=== PATIENT | male | born 1930 | race Caucasian/White ===

== ENCOUNTER → 2017-07-28 | Outpatient (CLI) | payer MEDICARE, OTHER ==
--- NOTE | 2017-07-28 13:26 | REP ---
CHEST, X-RAY: TWO VIEWS. History: Cough. Times 2 weeks. Comparison study: October 26, 2015. Findings: There are multiple old rib fractures bilaterally again noted. The lungs are symmetrically aerated and otherwise clear. The pleural angles are sharp. Heart size is normal. Pulmonary vasculature is not increased. The aorta is calcific. Impression: No filtrate seen. Multiple old bilateral rib fractures.
--- NOTE | 2017-07-28 14:00 | REP ---
Cervical spine series: Eight views. History: Neck pain. Comparison study: October 26, 2015. Findings: Lateral views done in flexion, extension and neutral position show straightening and reversal of the normal cervical lordosis. There is limitation of flexion, extension range of motion but no subluxation or instability is appreciated. No change in comparison with the November 11, 2015 prior study. Swimmers lateral view shows no additional abnormality. There is degenerative disc narrowing and spur formation at C3-4 through C6-7 and even C7-T1 as before. There is osteoarthritic facet hypertrophy prominently affecting the mid cervical spine facets bilaterally. The patient is edentulous. Oblique radiographs demonstrate uncovertebral spurring producing neural foraminal encroachment on the right C3-4, C4-5 and to some degree of C5-6. On the left there is uncovertebral spurring at C4-5 and C5-6. Impression: Advanced degenerative spondylosis changes unchanged from the comparison study.
== END ==
LOC: M CLY 10:43
PROVIDERS: ATTEND Family Medicine
DX: R05 Cough (principal); M47.812 Spondylosis without myelopathy or radiculopathy, cervical region; M50.30 Other cervical disc degeneration, unspecified cervical region; M12.88 Other specific arthropathies, not elsewhere classified, other specified site; Z87.81 Personal history of (healed) traumatic fracture
CPT/HCPCS: 71020; 72050; G0463

== ENCOUNTER 2019-02-18 11:33 | Inpatient (IN) | payer MEDICARE, OTHER ==
[~2019-02-18] VITALS: Ht 170.2 cm; Wt 75.3 kg
[2019-02-18] MEDS ORDERED: LORA-674 PO (11:50)
[2019-02-18] MEDS ORDERED: ZANTTAB PO (11:50)
[2019-02-18] MEDS ORDERED: BRIM1OPD OU (11:50)
[2019-02-18] MEDS ORDERED: CITA40TA4 PO (11:50)
[2019-02-18] MEDS ORDERED: BRIM2OPD OU (11:50)
[2019-02-18] MEDS ORDERED: TAMS1CAP17 PO (11:50)
[2019-02-18] MEDS ORDERED: ACET25TA12 PO (11:50)
[2019-02-18] MEDS ORDERED: TOLT4CAP3 PO (11:50)
[2019-02-18] MEDS ORDERED: TRAV04OPD OU (11:50)
[2019-02-18] MEDS ORDERED: ATOR1TAB21 PO (11:50)
[2019-02-18] MEDS ORDERED: METO50TA7 PO (11:50)
[2019-02-18] MEDS ORDERED: BENZ150C2 PO (11:50)
[2019-02-18 12:46] LABS: BASO # 0.1 10^3/uL (0.0-0.2); BASO % 0.7 % (0.0-1.0); EOS # 0.5 10^3/uL (0.0-0.50); EOS % 6.1 % (0.0-3.0); HEMATOCRIT 38.7 % (42.0-52.0); HEMOGLOBIN 13.1 g/dl (13.5-17.5); LYMPH # 1.2 10^3/uL (1.5-4.5); LYMPH % 13.4 % (24.0-44.0); MEAN CORPUSCULAR HEMOGLOBIN 31.9 pg (27.0-33.0); MEAN CORPUSCULAR HGB CONC 33.9 g/dl (32.0-36.5); MEAN CORPUSCULAR VOLUME 94.2 fl (80.0-96.0); MONO # 0.8 10^3/uL (0.0-0.8); MONO % 9.4 % (0.0-5.0); NEUTROPHILS # 6.1 10^3/uL (1.8-7.7); NEUTROPHILS % 69.9 % (36.0-66.0); PLATELET COUNT, AUTOMATED 220 10^3/uL (150-450); RED BLOOD COUNT 4.11 10^6/uL (4.30-6.10); WHITE BLOOD COUNT 8.7 10^3/uL (4.0-10.0)
[2019-02-18 13:28] LABS: ALBUMIN 3.2 GM/DL (3.2-5.2); ALT/SGPT 27 U/L (12-78); BILIRUBIN,DIRECT 0.2 MG/DL (0.0-0.2); BILIRUBIN,TOTAL 0.6 MG/DL (0.2-1.0); BLOOD UREA NITROGEN 13 MG/DL (7-18); CALCIUM LEVEL 8.8 MG/DL (8.8-10.2); CARBON DIOXIDE LEVEL 26 MEQ/L (21-32); CHLORIDE LEVEL 100 MEQ/L (98-107); CPK CREATINE PHOSPHOKINASE 51 U/L (39-308); CREATININE FOR GFR 1.02 MG/DL (0.70-1.30); GLOMERULAR FILTRATION RATE > 60.0 (>35); GLUCOSE, FASTING 112 MG/DL (70-100); MB/CK RELATIVE INDEX 3.33 (< OR =4); POTASSIUM SERUM 4.3 MEQ/L (3.5-5.1); SODIUM LEVEL 134 MEQ/L (136-145); TOTAL PROTEIN 6.8 GM/DL (6.4-8.2); TROPONIN I < 0.02 NG/ML (< 0.10)
--- NOTE | 2019-02-18 15:27 | REP ---
CT BRAIN WITHOUT CONTRAST: HISTORY: Altered mental status. No comparison study. CT FINDINGS: Digital preliminary [employer] radiograph is unremarkable. The patient is edentulous. Bone window settings show no bony destructive lesion or skull fracture. Vascular calcification is noted in the distal carotid and distal vertebral arteries bilaterally. No intraorbital abnormality is seen. The visualized paranasal sinuses are clear. On soft tissue window settings, there is generalized moderate cerebral and some cerebellar atrophy with concordant ventricular enlargement. There are moderate small vessel changes in the periventricular white matter of the frontal lobes. There is no evidence of acute infarction. No hemorrhage is seen. There is an old lacunar infarct in the left basal ganglia. No mass, extra-axial fluid collection or midline shift is seen. IMPRESSION: Vascular calcification, diffuse moderate atrophy, small vessel changes. Old lacunar infarct in the left basal ganglia. No acute intracranial abnormality. Electronically Signed by Israel Elliott MD 02/18/2019 03:57 P
--- NOTE | 2019-02-18 15:35 | REP ---
Semi-erect AP chest x-ray: Single view. History: Altered mental status. Comparison chest x-ray: July 28, 2017. Findings: EKG monitoring electrodes overlie the lung bases. Heart size is borderline and magnified by the AP technique. There are multiple old somewhat displaced healed rib fractures on the left and right. No acute bony abnormality is seen. Pulmonary vasculature is not increased. The aorta is calcific and a little tortuous. Impression: Borderline heart size. Old healed rib fractures bilaterally. Otherwise no acute disease. Electronically Signed by Israel Elliott MD 02/18/2019 03:58 P
[2019-02-18] MEDS ORDERED: RANI75TA15 PO (16:36)
--- NOTE | 2019-02-18 17:52 | HPEPDOC ---
General Date of Admission February 18, 2019 at 17:04 Date of Service: February 18, 2019 Chief Complaint The patient is a 89-year-old male admitted with a reason for visit of Confusion. History of Present Illness 89-year-old male with past medical history of dyslipidemia, anxiety/depression, hypertension, BPH presented to the ER with a chief complaint of increased confusion over the last several weeks. 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 She states that he has been picking things from the air while asleep. This has been ongoing over the last 3- 4 weeks as per the janitorial services supervisor, however over the last 3 days the patient has been becoming increasingly confused. She denies noticing any fevers, chills, chest pain, palpitations, abdominal pain, or any nausea/vomiting/diarrhea. In the ER, a CT scan of the head revealed no acute findings. The patient's urinalysis was suggestive of possible underlying urinary tract of action. The patient will be admitted under the [facility] for further evaluation and management. Home Medications Scheduled Acetaminophen/Diphenhydramine (Acetaminophen Pm Caplet) 1 Each Tablet, 1 TAB PO QHS, (Reported) Atorvastatin Calcium (Atorvastatin Calcium) 20 Mg Tablet, 20 MG PO DAILY, (Reported) Brimonidine Tartrate (Alphagan P) 0.1% 5ML Drops, 1 DROP OU DAILY, (Reported) Brimonidine Tartrate (Brimonidine Tartrate) 0.15% 5ML Drops, 1 DROP OU DAILY, (Reported) Citalopram Hydrobromide (Citalopram HBr) 40 Mg Tablet, 40 MG PO DAILY, (Reported) Loratadine (Loratadine) 10 Mg Tablet, 10 MG PO DAILY, (Reported) Metoprolol Tartrate (Metoprolol Tartrate) 50 Mg Tablet, 50 MG PO BID, (Reported) Ranitidine HCl (Ranitidine HCl) 75 Mg Tablet, 1 TAB PO BID, (Reported) Tamsulosin Hcl (Tamsulosin HCl) 0.4 Mg Capsule, 0.4 MG PO QHS, (Reported) Tolterodine Tartrate (Tolterodine Tartrate ER) 4 Mg Cap.er.24h, 4 MG PO DAILY, (Reported) Travoprost (Travatan Z) 0.004% 2.5ML Drops, 1 DROP OU QHS, (Reported) Allergies Coded Allergies: No Known Allergies (Unverified , 02/18/19) Social History * Smoker: Denies Alcohol: Denies Drugs: denies Review of Systems Other systems 10 point review of systems Limited secondary to the patient's clinical condition. Please refer to HPI for the extent of review of systems. Physical Examination General Exam: Positive: Alert, Cooperative, No Acute Distress, Other (Oriented only to person, not time, situation, or place) ENT Exam: Positive: Atraumatic, Mucous membr. moist/pink Chest Exam: Positive: Clear to auscultation, Normal air movement Heart Exam: Positive: Rate Normal, Normal S1, Normal S2 Abdomen Exam: Positive: Soft; Negative: Tenderness Extremity Exam: Negative: Tenderness, Swelling Vital Signs Vital Signs Date Time Temp Pulse Resp B/P (MAP) Pulse Ox O2 Delivery O2 Flow Rate FiO2 02/18/19 16:30 63 18 175/84 (114) 96 Room Air 02/18/19 11:34 99.1 Laboratory Data Labs 24H Laboratory Tests 2 02/18/19 12:23: Immature Granulocyte % (Auto) 0.5, White Blood Count 8.7, Red Blood Count 4.11L, Hemoglobin 13.1L, Hematocrit 38.7L, Mean Corpuscular Volume 94.2, Mean Corpuscular Hemoglobin 31.9, Mean Corpuscular Hemoglobin Concent 33.9, Red Cell Distribution Width 13.1, Platelet Count 220, Neutrophils (%) (Auto) 69.9H, Lymphocytes (%) (Auto) 13.4L, Monocytes (%) (Auto) 9.4H, Eosinophils (%) (Auto) 6.1H, Basophils (%) (Auto) 0.7, Neutrophils # (Auto) 6.1, Lymphocytes # (Auto) 1.2L, Monocytes # (Auto) 0.8, Eosinophils # (Auto) 0.5, Basophils # (Auto) 0.1, Nucleated Red Blood Cells % (auto) 0.0, Lactic Acid Level 1.2 02/18/19 12:24: Anion Gap 8, Glomerular Filtration Rate > 60.0, Calcium Level 8.8, Aspartate Amino Transf (AST/SGOT) 26, Alanine Aminotransferase (ALT/SGPT) 27, Alkaline Phosphatase 66, Total Bilirubin 0.6, Direct Bilirubin 0.2, Total Creatine Kinase 51, Creatine Kinase MB 2.0, Creatine Kinase MB Relative Index 3.33, Troponin I < 0.02, Total Protein 6.8, Albumin 3.2, Albumin/Globulin Ratio 0.89L, Thyroid Stimulating Hormone (TSH) 1.040 02/18/19 14:19: Urine Color YELLOW, Urine Appearance CLEAR, Urine pH 5.0, Urine Specific Speed 1.012, Urine Protein NEGATIVE, Urine Glucose (UA) NEGATIVE, Urine Ketones NEGATIVE, Urine Blood NEGATIVE, Urine Nitrite NEGATIVE, Urine Bilirubin NEGATIVE, Urine Urobilinogen 2.0H, Urine Leukocyte Esterase 2+H, Urine WBC (Auto) 13H, Urine RBC (Auto) 2, Urine Hyaline Casts (Auto) 0, Urine Bacteria (Auto) NEGATIVE, Urine Squamous Epithelial Cells 0, Urine Sperm (Auto) CBC/BMP Laboratory Tests 02/18/19 12:23 Red Blood Count 4.11 L, Mean Corpuscular Volume 94.2, Mean Corpuscular Hemoglobin 31.9, Mean Corpuscular Hemoglobin Concent 33.9, Red Cell Distribution Width 13.1, Neutrophils (%) (Auto) 69.9 H, Lymphocytes (%) (Auto) 13.4 L, Monocytes (%) (Auto) 9.4 H, Eosinophils (%) (Auto) 6.1 H, Basophils (%) (Auto) 0.7, Neutrophils # (Auto) 6.1, Lymphocytes # (Auto) 1.2 L, Monocytes # (Auto) 0.8, Eosinophils # (Auto) 0.5, Basophils # (Auto) 0.1 02/18/19 12:24 Microbiology Microbiology 02/18/19 Blood Culture, Received Pending 02/18/19 Blood Culture, Received Pending 02/18/19 Urine Culture, Received Pending Plan / VTE VTE Prophylaxis Ordered?: Yes Plan Plan Confusion, possibly 2/2 UTI, underlying Dementia CT Head with no acute findings CXR with no acute finding UA suggestive of possible underlying UTI Cultures ordered We will continue the patient on Rocephin Dyslipidemia Cont Statin HTN Cont Metoprolol Anxiety/Depression Cont Citalopram DVT Prophylaxis Heparin SC Patient will be admitted under the service of Dr. Burgess of the [facility]. SUE LOVE MD February 18, 2019 17:52
[2019-02-18] MEDS ORDERED: cefTRIAXone SOD 1 GM in D5W MINI-BAG PLUS 50 ML IV SCH (18:00)
[2019-02-18 18:12] VITALS: BP 164/84
[2019-02-18] MEDS: HEPARIN SOD (PORCINE) 5000 UNITS/ML VIAL SC SCH (21:12)
[2019-02-18] MEDS: FAMOTIDINE 20 MG TAB PO SCH (21:12)
[2019-02-18] MEDS: LATANOPROST 0.005% OPHTH SOLN 2.5 ML OU SCH (21:12)
[2019-02-18] MEDS: TAMSULOSIN 0.4 MG CAP PO SCH (21:12)
[2019-02-18] MEDS: METOPROLOL TART 50 MG TAB PO SCH (21:13)
[2019-02-18 22:00] VITALS: BP 147/67
[2019-02-19 06:00] VITALS: BP 136/96
[2019-02-19 06:04] LABS: HEMATOCRIT 36.9 % (42.0-52.0); HEMOGLOBIN 12.7 g/dl (13.5-17.5); MEAN CORPUSCULAR HEMOGLOBIN 31.8 pg (27.0-33.0); MEAN CORPUSCULAR HGB CONC 34.4 g/dl (32.0-36.5); MEAN CORPUSCULAR VOLUME 92.3 fl (80.0-96.0); PLATELET COUNT, AUTOMATED 195 10^3/uL (150-450); WHITE BLOOD COUNT 7.8 10^3/uL (4.0-10.0)
--- NOTE | 2019-02-19 06:04 | ECGEPIP ---
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
[2019-02-19 06:27] LABS: ALBUMIN 3.1 GM/DL (3.2-5.2); ALT/SGPT 25 U/L (12-78); BILIRUBIN,TOTAL 0.6 MG/DL (0.2-1.0); BLOOD UREA NITROGEN 10 MG/DL (7-18); CALCIUM LEVEL 9.1 MG/DL (8.8-10.2); CARBON DIOXIDE LEVEL 25 MEQ/L (21-32); CHLORIDE LEVEL 101 MEQ/L (98-107); CREATININE FOR GFR 0.91 MG/DL (0.70-1.30); GLOMERULAR FILTRATION RATE > 60.0 (>35); GLUCOSE, FASTING 100 MG/DL (70-100); MAGNESIUM LEVEL 1.7 MG/DL (1.8-2.4); POTASSIUM SERUM 3.9 MEQ/L (3.5-5.1); SODIUM LEVEL 133 MEQ/L (136-145); TOTAL PROTEIN 6.5 GM/DL (6.4-8.2)
--- NOTE | 2019-02-19 08:44 | IPNPDOC ---
Subjective Date Seen The patient was seen on 02/19/19. Subjective Chief Complaint/HPI Per sitter, patient was a little agitated last night. Did not fall asleep until very late Constitutional: Denies: Chills, Fever Cardiovascular: Denies: Chest Pain Gastrointestinal: Denies: Nausea, Vomiting, Abdominal Pain Objective Physical Examination General Exam: Positive: Alert, Cooperative, No Acute Distress, Other (Oriented only to person, not time, situation, or place) ENT Exam: Positive: Atraumatic, Mucous membr. moist/pink Chest Exam: Positive: Clear to auscultation, Normal air movement; Negative: Rales, Rhonchi, Wheezing Heart Exam: Positive: Rate Normal, Regular Rhythm, Normal S1, Normal S2 Abdomen Exam: Positive: Soft; Negative: Tenderness Extremity Exam: Negative: Tenderness, Swelling Psych Exam: Positive: Mental status NL; Negative: Oriented x 3 Assessment /Plan Problems (1) Delirium Status: Acute Problem Text: I have left a message with his caregiver to try to get a little b merari understanding of his baseline mental status to determine if this is an acute delirium or chronic dementia with psychosis Review of ecw notes does not mention dementia in the history. It does not appear there have been any new meds added that may contribute to acute delirium. His U/C is negative - I will d/c abx. B/C are pending but no real signs or symptoms of infection (2) Confusion Plan/VTE VTE Prophylaxis Ordered?: Yes (SQ heparin) Plan Pt and Family Services: Other PFS (need to get PFS involved to help [facility]mine [facility] VS, I&O, 24H, [facility] Vital Signs/I&O Vital Signs Date Time Temp Pulse Resp B/P (MAP) Pulse Ox O2 Delivery O2 Flow Rate FiO2 02/19/19 06:00 98.0 72 20 136/96 (109) 96 02/18/19 17:03 Room Air I&O- Last 24 Hours up to 6 AM 02/19/19 06:00 Intake Total 360 ml Output Total 650 ml Balance -290 ml Laboratory Data 24H LABS Laboratory Tests 2 02/18/19 12:23: Immature Granulocyte % (Auto) 0.5, White Blood Count 8.7, Red Blood Count 4.11L, Hemoglobin 13.1L, Hematocrit 38.7L, Mean Corpuscular Volume 94.2, Mean Corpuscular Hemoglobin 31.9, Mean Corpuscular Hemoglobin Concent 33.9, Red Cell Distribution Width 13.1, Platelet Count 220, Neutrophils (%) (Auto) 69.9H, Lymphocytes (%) (Auto) 13.4L, Monocytes (%) (Auto) 9.4H, Eosinophils (%) (Auto) 6.1H, Basophils (%) (Auto) 0.7, Neutrophils # (Auto) 6.1, Lymphocytes # (Auto) 1.2L, Monocytes # (Auto) 0.8, Eosinophils # (Auto) 0.5, Basophils # (Auto) 0.1, Nucleated Red Blood Cells % (auto) 0.0, Lactic Acid Level 1.2 02/18/19 12:24: Anion Gap 8, Glomerular Filtration Rate > 60.0, Calcium Level 8.8, Aspartate Amino Transf (AST/SGOT) 26, Alanine Aminotransferase (ALT/SGPT) 27, Alkaline Phosphatase 66, Total Bilirubin 0.6, Direct Bilirubin 0.2, Total Creatine Kinase 51, Creatine Kinase MB 2.0, Creatine Kinase MB Relative Index 3.33, Troponin I < 0.02, Total Protein 6.8, Albumin 3.2, Albumin/Globulin Ratio 0.89L, Thyroid Stimulating Hormone (TSH) 1.040 02/18/19 14:19: Urine Color YELLOW, Urine Appearance CLEAR, Urine pH 5.0, Urine Specific [place] 1.012, Urine Protein NEGATIVE, Urine Glucose (UA) NEGATIVE, Urine Ketones NEGATIVE, Urine Blood NEGATIVE, Urine Nitrite NEGATIVE, Urine Bilirubin NEGATIVE, Urine Urobilinogen 2.0H, Urine Leukocyte Esterase 2+H, Urine WBC (Auto) 13H, Urine RBC (Auto) 2, Urine Hyaline Casts (Auto) 0, Urine Bacteria (Auto) NEGATIVE, Urine Squamous Epithelial Cells 0, Urine Sperm (Auto) 02/19/19 05:42: Nucleated Red Blood Cells % (auto) 0.0, Anion Gap 7L, Glomerular Filtration Rate > 60.0, Calcium Level 9.1, Aspartate Amino Transf (AST/SGOT) 23, Alanine Aminotransferase (ALT/SGPT) 25, Alkaline Phosphatase 64, Total Bilirubin 0.6, Total Protein 6.5, Albumin 3.1L, Albumin/Globulin Ratio 0.91L, Blood Urea Nitrogen 10, Creatinine 0.91, Sodium Level 133L, Potassium Level 3.9, Chloride Level 101, Carbon Dioxide Level 25, Magnesium Level 1.7L, Ammonia 24 CBC/BMP Laboratory Tests 02/18/19 12:23 Red Blood Count 4.11 L, Mean Corpuscular Volume 94.2, Mean Corpuscular Hemoglobin 31.9, Mean Corpuscular Hemoglobin Concent 33.9, Red Cell Distribution Width 13.1, Neutrophils (%) (Auto) 69.9 H, Lymphocytes (%) (Auto) 13.4 L, Monocytes (%) (Auto) 9.4 H, Eosinophils (%) (Auto) 6.1 H, Basophils (%) (Auto) 0.7, Neutrophils # (Auto) 6.1, Lymphocytes # (Auto) 1.2 L, Monocytes # (Auto) 0.8, Eosinophils # (Auto) 0.5, Basophils # (Auto) 0.1 02/18/19 12:24 02/19/19 05:42 Red Blood Count 4.00 L, Mean Corpuscular Volume 92.3, Mean Corpuscular Hemoglobin 31.8, Mean Corpuscular Hemoglobin Concent 34.4, Red Cell Distribution Width 12.8, Calcium Level 9.1, Aspartate Amino Transf (AST/SGOT) 23, Alanine Aminotransferase (ALT/SGPT) 25, Alkaline Phosphatase 64, Total Bilirubin 0.6, Total Protein 6.5, Albumin 3.1 L Microbiology Microbiology 02/18/19 Blood Culture, Received Pending 02/18/19 Blood Culture, Received Pending 02/18/19 Urine Culture - Final, Complete IZYZ MICHEL PA-C February 19, 2019 08:44
[2019-02-19] MEDS ORDERED: TOLTERODINE TARTRATE 2 MG LA CAP (DETROL LA) PO SCH (09:00)
[2019-02-19] MEDS ORDERED: LORATADINE 10 MG TAB PO SCH (09:00)
[2019-02-19] MEDS: HEPARIN SOD (PORCINE) 5000 UNITS/ML VIAL SC SCH ×2 (09:58→21:34)
[2019-02-19] MEDS: FAMOTIDINE 20 MG TAB PO SCH ×2 (09:58→21:35)
[2019-02-19] MEDS: ATORVASTATIN 20 MG TAB PO SCH (09:59)
[2019-02-19] MEDS: CitaloPRAM (CeleXA) 20 MG TAB PO SCH (09:59)
[2019-02-19] MEDS: METOPROLOL TART 50 MG TAB PO SCH ×2 (10:00→21:35)
[2019-02-19] MEDS: BRIMONIDINE 0.1% OPHTH SOLN 5 ML OU SCH (10:00)
[2019-02-19] MEDS: BRIMONIDINE 0.15% OPHTH SOLN 5 ML OU SCH (10:01)
[2019-02-19 11:48] LABS: FOLATE > 24.0 NG/ML (>5.4); VITAMIN B12 LEVEL 1060 PG/ML (247-911)
[2019-02-19 14:00] VITALS: BP 159/77
[2019-02-19] MEDS: LATANOPROST 0.005% OPHTH SOLN 2.5 ML OU SCH (21:34)
[2019-02-19] MEDS: TAMSULOSIN 0.4 MG CAP PO SCH (21:35)
[2019-02-19 22:00] VITALS: BP 152/78
[2019-02-20 06:00] VITALS: BP 137/62
[2019-02-20 09:00] VITALS: BP 160/73
[2019-02-20] MEDS: HEPARIN SOD (PORCINE) 5000 UNITS/ML VIAL SC SCH ×2 (10:38→21:33)
[2019-02-20] MEDS: ATORVASTATIN 20 MG TAB PO SCH (10:38)
[2019-02-20] MEDS: CitaloPRAM (CeleXA) 20 MG TAB PO SCH (10:39)
[2019-02-20] MEDS: METOPROLOL TART 50 MG TAB PO SCH ×2 (10:40→21:33)
[2019-02-20] MEDS: BRIMONIDINE 0.1% OPHTH SOLN 5 ML OU SCH (10:42)
[2019-02-20] MEDS: BRIMONIDINE 0.15% OPHTH SOLN 5 ML OU SCH (10:42)
[2019-02-20] MEDS: FAMOTIDINE 20 MG TAB PO SCH ×2 (10:42→21:32)
[2019-02-20 12:00] VITALS: BP 127/60
[2019-02-20 14:00] VITALS: BP 180/51
--- NOTE | 2019-02-20 20:31 | IPNPDOC ---
Subjective Date Seen The patient was seen on 02/20/19. Subjective Chief Complaint/HPI Nursing and [facility] staff report that he's done well today. The patient is himself confused but is asking why he is here. He denies any problems or complaints. General: Reports: ROS Unobtainable Objective Physical Examination General Exam: Positive: Alert, Cooperative (laying in bed watching television when I entered the room), No Acute Distress Eye Exam: Positive: Conjunctiva & lids normal ENT Exam: Positive: Atraumatic, Mucous membr. moist/pink Chest Exam: Positive: Clear to auscultation, Normal air movement Heart Exam: Positive: Rate Normal, Regular Rhythm, Normal S1, Normal S2 Abdomen Exam: Positive: Soft; Negative: Tenderness Extremity Exam: Negative: Edema Psych Exam: Negative: Memory Intact, Oriented x 3 (oriented to person only) Assessment /Plan Problems (1) Dementia Status: Chronic Response to Treatment: Stable Problem Specific Plan: Monitor Clinically Problem Text: At this point I believe that we are seeing is his chronic dementia rather than acute delirium. What is not clear to me is what his disposi tion will be. We will need to try to get more information from his family regarding what they are looking for. (2) Hypertension Status: Chronic Response to Treatment: Stable Problem Specific Plan: Monitor Clinically Problem Text: Continue metoprolol. (3) BPH (benign prostatic hyperplasia) Status: Chronic Response to Treatment: Stable Problem Specific Plan: Monitor Clinically Problem Text: Continue tamsulosin. (4) Dyslipidemia Status: Chronic Response to Treatment: Stable Problem Text: Continue atorvastatin. (5) Delirium Status: Resolved Plan/VTE VTE Prophylaxis Ordered?: Yes (SQ heparin) Plan Pt and Family Services: Other PFS (need to get PFS involved to help dertmine d/c plans - backhome with 24 hour care?) VS, I&O, 24H, Fishbone Vital Signs/I&O Vital Signs Date Time Temp Pulse Resp B/P (MAP) Pulse Ox O2 Delivery O2 Flow Rate FiO2 02/20/19 14:00 97.0 58 18 96 02/20/19 14:00 180/51 (94) 02/18/19 17:03 Room Air I&O- Last 24 Hours up to 6 AM 02/20/19 06:00 Intake Total 900 ml Output Total 1100 ml Balance -200 ml Laboratory Data Microbiology Microbiology 02/18/19 Blood Culture - Preliminary, Resulted No Growth after 48 hours. All Specime... 02/18/19 Blood Culture - Preliminary, Resulted No Growth after 48 hours. All Specime... 02/18/19 Urine Culture - Final, Complete Herbert Villanueva MD Feb 20, 2019 8:31 pm
[2019-02-20] MEDS: TAMSULOSIN 0.4 MG CAP PO SCH (21:33)
[2019-02-20] MEDS: LATANOPROST 0.005% OPHTH SOLN 2.5 ML OU SCH (21:33)
[2019-02-20 22:00] VITALS: BP 141/74
[2019-02-21 05:55] LABS: BASO % 0.5 % (0.0-1.0); EOS # 0.5 10^3/uL (0.0-0.50); EOS % 6.1 % (0.0-3.0); HEMATOCRIT 34.7 % (42.0-52.0); LYMPH # 1.4 10^3/uL (1.5-4.5); LYMPH % 18.4 % (24.0-44.0); MEAN CORPUSCULAR HEMOGLOBIN 31.7 pg (27.0-33.0); MEAN CORPUSCULAR HGB CONC 34.6 g/dl (32.0-36.5); MEAN CORPUSCULAR VOLUME 91.6 fl (80.0-96.0); MONO # 0.8 10^3/uL (0.0-0.8); MONO % 10.8 % (0.0-5.0); NEUTROPHILS # 4.9 10^3/uL (1.8-7.7); NEUTROPHILS % 63.9 % (36.0-66.0); PLATELET COUNT, AUTOMATED 205 10^3/uL (150-450); RED BLOOD COUNT 3.79 10^6/uL (4.30-6.10); WHITE BLOOD COUNT 7.7 10^3/uL (4.0-10.0)
[2019-02-21 06:00] VITALS: BP 143/75
[2019-02-21 06:17] LABS: ALBUMIN 2.9 GM/DL (3.2-5.2); ALT/SGPT 20 U/L (12-78); BILIRUBIN,TOTAL 0.5 MG/DL (0.2-1.0); BLOOD UREA NITROGEN 10 MG/DL (7-18); CALCIUM LEVEL 8.7 MG/DL (8.8-10.2); CARBON DIOXIDE LEVEL 24 MEQ/L (21-32); CHLORIDE LEVEL 99 MEQ/L (98-107); CREATININE FOR GFR 0.92 MG/DL (0.70-1.30); GLOMERULAR FILTRATION RATE > 60.0 (>35); GLUCOSE, FASTING 109 MG/DL (70-100); POTASSIUM SERUM 3.7 MEQ/L (3.5-5.1); SODIUM LEVEL 131 MEQ/L (136-145); TOTAL PROTEIN 6.1 GM/DL (6.4-8.2)
[2019-02-21] MEDS: CitaloPRAM (CeleXA) 20 MG TAB PO SCH (09:57)
[2019-02-21] MEDS: FAMOTIDINE 20 MG TAB PO SCH ×2 (09:57→20:29)
[2019-02-21] MEDS: ATORVASTATIN 20 MG TAB PO SCH (09:57)
[2019-02-21] MEDS: HEPARIN SOD (PORCINE) 5000 UNITS/ML VIAL SC SCH ×2 (09:57→20:29)
[2019-02-21] MEDS: BRIMONIDINE 0.15% OPHTH SOLN 5 ML OU SCH (09:58)
[2019-02-21] MEDS: METOPROLOL TART 50 MG TAB PO SCH ×2 (09:58→20:30)
[2019-02-21] MEDS: BRIMONIDINE 0.1% OPHTH SOLN 5 ML OU SCH (09:58)
[2019-02-21 14:00] VITALS: BP 143/73
[2019-02-21] MEDS ORDERED: FUROSEMIDE 20 MG/2 ML VIAL (J1940) IV ONE (17:00)
[2019-02-21] MEDS: TAMSULOSIN 0.4 MG CAP PO SCH (20:29)
[2019-02-21] MEDS: LATANOPROST 0.005% OPHTH SOLN 2.5 ML OU SCH (20:30)
[2019-02-21 22:00] VITALS: BP 150/84
--- NOTE | 2019-02-21 23:28 | IPNPDOC ---
Subjective Date Seen The patient was seen on 02/21/19. Subjective Chief Complaint/HPI He reports that he feels well. He has no specific problems or concerns. Nursing was able to speak to his family and clarify that they would like to bring him home once he is medically stable. I think that this is a good idea, however, we will need to have an assessment of what his needs will be and a home safety evaluation tomorrow. General: Reports: ROS Unobtainable Objective Physical Examination General Exam: Positive: Alert, Cooperative (laying in bed watching television when I entered the room), No Acute Distress Eye Exam: Positive: Conjunctiva & lids normal; Negative: Sclera icteric ENT Exam: Positive: Mucous membr. moist/pink Chest Exam: Positive: Clear to auscultation, Normal air movement, Rales (noted at the bilateral lung bases) Heart Exam: Positive: Rate Normal, Regular Rhythm, Normal S1, Normal S2 Abdomen Exam: Positive: Soft; Negative: Tenderness Extremity Exam: Negative: Edema Psych Exam: Negative: Memory Intact, Oriented x 3 (oriented to person only) Assessment /Plan Problems (1) Dementia Status: Chronic Response to Treatment: Stable Problem Specific Plan: Monitor Clinically Problem Text: At this point I believe that we are seeing is his chronic jessica ia rather than acute delirium. What is not clear to me is what his disposition will be. We will need to try to get more information from his family regarding what they are looking for. (2) Hypertension Status: Chronic Response to Treatment: Stable Problem Specific Plan: Monitor Clinically Problem Text: He did appear to be slightly volume overloaded based on his labs so I ordered a one-time dose of furosemide today. Continue metoprolol. (3) BPH (benign prostatic hyperplasia) Status: Chronic Response to Treatment: Stable Problem Specific Plan: Monitor Clinically Problem Text: Continue tamsulosin. (4) Dyslipidemia Status: Chronic Response to Treatment: Stable Problem Text: Continue atorvastatin. (5) Delirium Status: Resolved Plan/VTE VTE Prophylaxis Ordered?: Yes (SQ heparin) Plan Pt and Family Services: Other PFS (need to get PFS involved to help dertmine d/c plans - backhome with 24 hour care?) VS, I&O, 24H, Fishbone Vital Signs/I&O Vital Signs Date Time Temp Pulse Resp B/P (MAP) Pulse Ox O2 Delivery O2 Flow Rate FiO2 02/21/19 20:30 65 150/84 02/21/19 14:00 98.4 20 97 02/18/19 17:03 Room Air I&O- Last 24 Hours up to 6 AM 02/21/19 06:00 Intake Total 1440 ml Output Total 450 ml Balance 990 ml Laboratory Data 24H LABS Laboratory Tests 2 02/21/19 05:30: Immature Granulocyte % (Auto) 0.3, White Blood Count 7.7, Red Blood Count 3.79L, Hemoglobin 12.0L, Hematocrit 34.7L, Mean Corpuscular Volume 91.6, Mean Corpuscular Hemoglobin 31.7, Mean Corpuscular Hemoglobin Concent 34.6, Red Cell Distribution Width 12.8, Platelet Count 205, Neutrophils (%) (Auto) 63.9, Lymphocytes (%) (Auto) 18.4L, Monocytes (%) (Auto) 10.8H, Eosinophils (%) (Auto) 6.1H, Basophils (%) (Auto) 0.5, Neutrophils # (Auto) 4.9, Lymphocytes # (Auto) 1.4L, Monocytes # (Auto) 0.8, Eosinophils # (Auto) 0.5, Basophils # (Auto) 0.0, Nucleated Red Blood Cells % (auto) 0.0, Anion Gap 8, Glomerular Filtration Rate > 60.0, Blood Urea Nitrogen 10, Creatinine 0.92, Sodium Level 131L, Potassium Level 3.7, Chloride Level 99, Carbon Dioxide Level 24, Calcium Level 8.7L, Aspartate Amino Transf (AST/SGOT) 19, Alanine Aminotransferase (ALT/SGPT) 20, Alkaline Phosphatase 54, Total Bilirubin 0.5, Total Protein 6.1L, Albumin 2.9L, Albumin/Globulin Ratio 0.91L CBC/BMP Laboratory Tests 02/21/19 05:30 Red Blood Count 3.79 L, Mean Corpuscular Volume 91.6, Mean Corpuscular Hemoglobin 31.7, Mean Corpuscular Hemoglobin Concent 34.6, Red Cell Distribution Width 12.8, Neutrophils (%) (Auto) 63.9, Lymphocytes (%) (Auto) 18.4 L, Monocytes (%) (Auto) 10.8 H, Eosinophils (%) (Auto) 6.1 H, Basophils (%) (Auto) 0.5, Neutrophils # (Auto) 4.9, Lymphocytes # (Auto) 1.4 L, Monocytes # (Auto) 0.8, Eosinophils # (Auto) 0.5, Basophils # (Auto) 0.0, Calcium Level 8.7 L, Aspartate Amino Transf (AST/SGOT) 19, Alanine Aminotransferase (ALT/SGPT) 20, Alkaline Phosphatase 54, Total Bilirubin 0.5, Total Protein 6.1 L, Albumin 2.9 L Microbiology Microbiology 02/18/19 Blood Culture - Preliminary, Resulted No Growth after 72 hours. All specime... 02/18/19 Blood Culture - Preliminary, Resulted No Growth after 72 hours. All specime... 02/18/19 Urine Culture - Final, Complete Herbert Villanueva MD Feb 21, 2019 11:28 pm
[2019-02-22 06:00] VITALS: BP 139/56
[2019-02-22 06:47] LABS: ALBUMIN 2.8 GM/DL (3.2-5.2); BLOOD UREA NITROGEN 10 MG/DL (7-18); CALCIUM LEVEL 8.4 MG/DL (8.8-10.2); CARBON DIOXIDE LEVEL 26 MEQ/L (21-32); CHLORIDE LEVEL 96 MEQ/L (98-107); CREATININE FOR GFR 0.96 MG/DL (0.70-1.30); GLOMERULAR FILTRATION RATE > 60.0 (>35); GLUCOSE, FASTING 120 MG/DL (70-100); PHOSPHORUS LEVEL 2.6 MG/DL (2.5-4.9); POTASSIUM SERUM 3.8 MEQ/L (3.5-5.1); SODIUM LEVEL 129 MEQ/L (136-145)
[2019-02-22] MEDS: ATORVASTATIN 20 MG TAB PO SCH (08:55)
[2019-02-22] MEDS: CitaloPRAM (CeleXA) 20 MG TAB PO SCH (08:55)
[2019-02-22] MEDS: METOPROLOL TART 50 MG TAB PO SCH ×2 (08:55→21:10)
[2019-02-22] MEDS: FAMOTIDINE 20 MG TAB PO SCH ×2 (08:55→21:10)
[2019-02-22] MEDS: BRIMONIDINE 0.1% OPHTH SOLN 5 ML OU SCH (08:56)
[2019-02-22] MEDS: BRIMONIDINE 0.15% OPHTH SOLN 5 ML OU SCH (08:56)
[2019-02-22] MEDS: HEPARIN SOD (PORCINE) 5000 UNITS/ML VIAL SC SCH ×2 (08:56→21:11)
--- NOTE | 2019-02-22 09:10 | REP ---
MRI BRAIN WITHOUT CONTRAST: HISTORY: Delirium. COMPARISON: CT 02/18/2019 A punctate focus of increased signal intensity on diffusion and T2-weighted images is present in the right parietal lobe. This is isointense in signal intensity on ADC images and is consistent with a subacute infarction. An area of increased signal intensity on T2-weighted images is present in the left basal ganglia. This represents an old lacunar infarction. Areas of increased signal intensity on T2-weighted images are present in the periventricular and subcortical white matter. This represents small vessel ischemic disease. There is no intraparenchymal hemorrhage, acute infarct, mass or midline shift. The ventricular system and cortical sulci are dilated consistent with moderate volume loss. There is no extracerebral collection. The sinuses are clear. IMPRESSION: 1. There is a punctate subacute infarction in the right parietal lobe. 2. Old left basal ganglia lacunar infarction. 3. Small vessel ischemic disease. 4. Moderate volume loss. Electronically Signed by Gilles Espinal MD 02/22/2019 09:20 A
[2019-02-22 14:00] VITALS: BP 145/55
--- NOTE | 2019-02-22 19:04 | IPNPDOC ---
Subjective Date Seen The patient was seen on 02/22/19. Subjective Chief Complaint/HPI Mr. Benites is feeling well today. He would like to go home. His daughter is willing to come up from [place] to take him home with 24-hour supervision. PT has determined that he is safe to return home to his previous level of care. General: Reports: ROS Unobtainable Objective Physical Examination General Exam: Positive: Alert, Cooperative (laying in bed when I entered the r oom), No Acute Distress Eye Exam: Positive: Conjunctiva & lids normal; Negative: Sclera icteric ENT Exam: Positive: Mucous membr. moist/pink Chest Exam: Positive: Clear to auscultation, Normal air movement; Negative: Rales Heart Exam: Positive: Rate Normal, Regular Rhythm, Normal S1, Normal S2 Abdomen Exam: Positive: Soft; Negative: Tenderness Extremity Exam: Negative: Edema Neuro Exam: Positive: Normal Speech Psych Exam: Negative: Memory Intact, Oriented x 3 (oriented to person only) Assessment /Plan Problems (1) Dementia Status: Chronic Response to Treatment: Stable Problem Specific Plan: Monitor Clinically Problem Text: At this point I believe that we are seeing is his chronic dementia rather than acute delirium. What is not clear to me is what his disposition will be. We will need to try to get more information from his family regarding what they are looking for. (2) Hypertension Status: Chronic Response to Treatment: Stable Problem Specific Plan: Monitor Clinically Problem Text: His volume seems to have corrected today. He does have a sodium of 129 now. I think this will correct over the next couple days, and he has no symptomatic change. Continue metoprolol. (3) BPH (benign prostatic hyperplasia) Status: Chronic Response to Treatment: Stable Problem Specific Plan: Monitor Clinically Problem Text: Continue tamsulosin. (4) Dyslipidemia Status: Chronic Response to Treatment: Stable Problem Text: Continue atorvastatin. (5) Delirium Status: Resolved Plan/VTE VTE Prophylaxis Ordered?: Yes (SQ heparin) Plan Pt and Family Services: Other PFS (need to get PFS involved to help dertmine d/c plans - backhome with 24 hour care?) VS, I&O, 24H, Fishbone Vital Signs/I&O Vital Signs Date Time Temp Pulse Resp B/P (MAP) Pulse Ox O2 Delivery O2 Flow Rate FiO2 02/22/19 14:00 98.2 60 16 145/55 (85) 94 02/18/19 17:03 Room Air I&O- Last 24 Hours up to 6 AM 02/22/19 06:00 Intake Total 1440 ml Output Total 550 ml Balance 890 ml Laboratory Data 24H LABS Laboratory Tests 2 02/22/19 05:46: Blood Urea Nitrogen 10, Creatinine 0.96, Sodium Level 129L, Potassium Level 3.8, Chloride Level 96L, Carbon Dioxide Level 26, Anion Gap 7L, Glomerular Filtration Rate > 60.0, Calcium Level 8.4L, Phosphorus Level 2.6, Albumin 2.8L CBC/BMP Laboratory Tests 02/22/19 05:46 Anion Gap 7 L Microbiology Microbiology 02/18/19 Blood Culture - Preliminary, Resulted No Growth after 72 hours. All specime... 02/18/19 Blood Culture - Preliminary, Resulted No Growth after 72 hours. All specime... 02/18/19 Urine Culture - Final, Complete Herbert Villanueva MD Feb 22, 2019 7:04 pm
[2019-02-22] MEDS: TAMSULOSIN 0.4 MG CAP PO SCH (21:10)
[2019-02-22] MEDS: LATANOPROST 0.005% OPHTH SOLN 2.5 ML OU SCH (21:11)
[2019-02-22 22:00] VITALS: BP 158/69
[2019-02-23 06:00] VITALS: BP 144/89
[2019-02-23 06:45] LABS: ALBUMIN 2.7 GM/DL (3.2-5.2); BLOOD UREA NITROGEN 9 MG/DL (7-18); CALCIUM LEVEL 8.5 MG/DL (8.8-10.2); CARBON DIOXIDE LEVEL 24 MEQ/L (21-32); CHLORIDE LEVEL 97 MEQ/L (98-107); CREATININE FOR GFR 0.88 MG/DL (0.70-1.30); GLOMERULAR FILTRATION RATE > 60.0 (>35); GLUCOSE, FASTING 110 MG/DL (70-100); PHOSPHORUS LEVEL 2.4 MG/DL (2.5-4.9); SODIUM LEVEL 128 MEQ/L (136-145)
--- NOTE | 2019-02-23 07:18 | DS.PDOC ---
Discharge Summary General Date of Admission February 18, 2019 at 17:04 Date of Discharge 02/23/19 Primary Care Physician: Mindy Muñoz Attending Physician: Herbert Villanueva MD Discharge Summary PROCEDURES PERFORMED DURING STAY: None ADMITTING DIAGNOSES: 1. Delirium 2. Confusion DISCHARGE DIAGNOSES: 1. Dementia COMPLICATIONS/CHIEF COMPLAINT: Confusion. HISTORY OF PRESENT ILLNESS: 89-year-old male with past medical history of dyslipidemia, anxiety/depression, hypertension, BPH presented to the ER with a chief complaint of increased confusion over the last several weeks. 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 She stated that he had been picking things from the air while asleep. This had been ongoing over the last 3-4 weeks as per the teacher ballet, however over the last 3 days the patient had been becoming increasingly confused. She denied any fevers, chills, chest pain, palpitations, abdominal pain, or any nausea/vomiting/diarrhea. In the ER, a CT scan of the head revealed no acute findings. The patient's urinalysis was suggestive of possible underlying urinary tract of action. The patient was admitted for further evaluation and management. HOSPITAL COURSE: Dementia 1. Delirium: Resolved rather quickly. This was felt to be related to his underlying dementia. Urine Cx and blood Cx negative. No acute findings on CT scan. Patient exhibited no signs or symptoms of infection. Patient was stable and back to his baseline upon day of discharge. 2. Dementia: Patient remained at his baseline level of function. He was cleared by PT. They determined that he is safe to return home to his previous level of care. 3. Hypertension: Pressures remained stable throughout his hospital course on Met oprolol. He did appear to be slightly volume overloaded based on his labs on 02/21/19 and a one-time dose of furosemide was administerd. His volume corrected. He does have a sodium of 129 now, which will likely correct over the next couple days. He has no symptomatic change 4. BPH: He was continued on his tamsulosin. 5. Dyslipidemia: He was continued on his atorvastatin. DISCHARGE MEDICATIONS: Please see below. ALLERGIES: Please see below. PHYSICAL EXAMINATION ON DISCHARGE: VITAL SIGNS: Please see below. GENERAL: Alert, Cooperative (laying in bed when I entered the room), No Acute Distress HEENT: Conjunctiva & lids normal NECK: supple, no lymphadenopathy CARDIOVASCULAR EXAMINATION: RRR RESPIRATORY EXAMINATION: CTA ABDOMINAL EXAMINATION: non-distended, non-tender EXTREMITIES:no edema SKIN: warm dry, good turgor NEUROLOGICAL EXAMINATION:lobsterman memory Intact, oriented to person only LABORATORY DATA: Please see below. IMAGING: Head CT 02/18: Vascular calcification, diffuse moderate atrophy, small vessel changes. Old lacunar infarct in the left basal ganglia. No acute intracranial abnormality. Chest X-ray 02/18: Borderline heart size. Old healed rib fractures bilaterally. Otherwise no acute disease. Brain MRI 02/19: IMPRESSION: 1. There is a punctate subacute infarction in the right parietal lobe. 2. Old left basal ganglia lacunar infarction. 3. Small vessel ischemic disease. 4. Moderate volume loss. ACTIVITY: PEr PT recommendations, As tolerated DISCHARGE PLAN: To home DISPOSITION: To home with 14/04 care DISCHARGE INSTRUCTIONS: 1. F/U with PCP in one week, Joanne Muñoz DISCHARGE CONDITION: Stable Vital Signs/I&Os Vital Signs Date Time Temp Pulse Resp B/P (MAP) Pulse Ox O2 Delivery O2 Flow Rate FiO2 02/23/19 06:00 97.2 89 20 144/89 (107) 96 02/18/19 17:03 Room Air I&O- Last 24 Hours up to 6 AM 02/23/19 06:00 Intake Total 540 ml Output Total 0 ml Balance 540 ml Laboratory Data Labs 24H Laboratory Tests 2 02/23/19 06:10: Blood Urea Nitrogen 9, Creatinine 0.88, Sodium Level 128L, Potassium Level 4.0, Chloride Level 97L, Carbon Dioxide Level 24, Anion Gap 7L, Glomerular Filtration Rate > 60.0, Calcium Level 8.5L, Phosphorus Level 2.4L, Albumin 2.7L CBC/BMP Laboratory Tests 02/23/19 06:10 Anion Gap 7 L Microbiology Microbiology 02/18/19 Blood Culture - Preliminary, Resulted No Growth after 72 hours. All specime... 02/18/19 Blood Culture - Preliminary, Resulted No Growth after 72 hours. All specime... 02/18/19 Urine Culture - Final, Complete Discharge Medications Scheduled Acetaminophen/Diphenhydramine (Acetaminophen Pm Caplet) 1 Each Tablet, 1 TAB PO QHS, (Reported) Atorvastatin Calcium (Atorvastatin Calcium) 20 Mg Tablet, 20 MG PO DAILY, (Reported) Brimonidine Tartrate (Alphagan P) 0.1% 5ML Drops, 1 DROP OU DAILY, (Reported) Brimonidine Tartrate (Brimonidine Tartrate) 0.15% 5ML Drops, 1 DROP OU DAILY, (Reported) Citalopram Hydrobromide (Citalopram HBr) 40 Mg Tablet, 40 MG PO DAILY, (Reported) Loratadine (Loratadine) 10 Mg Tablet, 10 MG PO DAILY, (Reported) Metoprolol Tartrate (Metoprolol Tartrate) 50 Mg Tablet, 50 MG PO BID, (Reported) Ranitidine HCl (Ranitidine HCl) 75 Mg Tablet, 1 TAB PO BID, (Reported) Tamsulosin Hcl (Tamsulosin HCl) 0.4 Mg Capsule, 0.4 MG PO QHS, (Reported) Tolterodine Tartrate (Tolterodine Tartrate ER) 4 Mg Cap.er.24h, 4 MG PO DAILY, (Reported) Travoprost (Travatan Z) 0.004% 2.5ML Drops, 1 DROP OU QHS, (Reported) Allergies Coded Allergies: No Known Allergies (Unverified , 02/18/19) BETZAIDA [facility] Feb 23, 2019 07:14
[2019-02-23 08:20] VITALS: BP 144/89
[2019-02-23] MEDS: METOPROLOL TART 50 MG TAB PO SCH (08:20)
[2019-02-23] MEDS: ATORVASTATIN 20 MG TAB PO SCH (08:20)
[2019-02-23] MEDS: HEPARIN SOD (PORCINE) 5000 UNITS/ML VIAL SC SCH (08:21)
[2019-02-23] MEDS: CitaloPRAM (CeleXA) 20 MG TAB PO SCH (08:21)
[2019-02-23] MEDS: BRIMONIDINE 0.1% OPHTH SOLN 5 ML OU SCH (08:21)
[2019-02-23] MEDS: BRIMONIDINE 0.15% OPHTH SOLN 5 ML OU SCH (08:21)
[2019-02-23] MEDS: FAMOTIDINE 20 MG TAB PO SCH (08:21)
== END 2019-02-23 12:35 | disposition home health service (06) | DRG 884 ==
LOC: M ED 11:33 → M ED INP 17:04 → M MS5PR 18:00
PROVIDERS: ADMIT Internal Medicine; ATTEND Family Medicine
DX: F03.91 Unspecified dementia, unspecified severity, with behavioral disturbance (principal); E78.5 Hyperlipidemia, unspecified; F41.9 Anxiety disorder, unspecified; F32.9 Major depressive disorder, single episode, unspecified; I10 Essential (primary) hypertension; N40.0 Benign prostatic hyperplasia without lower urinary tract symptoms; Z79.899 Other long term (current) drug therapy

== ENCOUNTER → 2019-03-03 | Outpatient (REF) | payer MEDICARE, OTHER ==
[~2019-03-03] MED LIST: ACET25TA12 PO; ATOR1TAB21 PO; BENZ150C2 PO; BRIM1OPD OU; BRIM2OPD OU; CITA40TA4 PO; LORA-674 PO; METO50TA7 PO; RANI75TA15 PO; TAMS1CAP17 PO; TOLT4CAP3 PO; TRAV04OPD OU; ZANTTAB PO
[2019-03-03 16:57] LABS: ALBUMIN 3.4 GM/DL (3.2-5.2); BILIRUBIN,TOTAL 0.5 MG/DL (0.2-1.0); CALCIUM LEVEL 9.2 MG/DL (8.8-10.2); CREATININE FOR GFR 1.38 MG/DL (0.70-1.30); GLOMERULAR FILTRATION RATE 51.6 (>35); POTASSIUM SERUM 4.5 MEQ/L (3.5-5.1); TOTAL PROTEIN 6.8 GM/DL (6.4-8.2)
== END ==
LOC: M SFHCCLAY 10:58
PROVIDERS: ATTEND Nurse Practitioner Family
DX: E87.1 Hypo-osmolality and hyponatremia (principal)

== ENCOUNTER 2019-07-10 14:26 | Inpatient (IN) | payer MEDICARE, OTHER ==
[~2019-07-10] VITALS: Ht 175.3 cm; Wt 65.9 kg
[~2019-07-10 14:26] MED LIST changes: +ZANT150T40 PO; -ZANTTAB PO
[2019-07-10] MEDS ORDERED: DOXY100T (14:38)
--- NOTE | 2019-07-10 15:36 | REP ---
Chest x-ray: Two views. History: Altered mental status. Comparison chest x-ray: January. Findings: The heart is mildly enlarged as before. Pleural angles are sharp. Old healed rib fractures are noted on the left. The aorta is calcific and tortuous. Today's chest x-ray shows increased lung markings in the right lower lobe consistent with pneumonia. Impression: Right lower lobe infiltrate consistent with pneumonia. Cardiomegaly. Old healed rib fractures on the left. Electronically Signed by Israel Elliott MD 07/10/2019 03:27 P
[2019-07-10] MEDS ORDERED: cefTRIAXone SOD 1 GM in D5W MINI-BAG PLUS 50 ML IV ONE (15:45)
[2019-07-10 15:50] LABS: BASO % 0.1 % (0.0-1.0); EOS # 0.1 10^3/uL (0.0-0.5); EOS % 0.7 % (0.0-3.0); HEMATOCRIT 39.1 % (42.0-52.0); HEMOGLOBIN 13.2 g/dl (13.5-17.5); LYMPH # 0.7 10^3/uL (1.5-5.0); LYMPH % 4.5 % (24.0-44.0); MEAN CORPUSCULAR HEMOGLOBIN 31.1 pg (27.0-33.0); MEAN CORPUSCULAR HGB CONC 33.8 g/dl (32.0-36.5); MONO # 1.1 10^3/uL (0.0-0.8); MONO % 6.8 % (0.0-5.0); NEUTROPHILS # 13.4 10^3/uL (1.5-8.5); PLATELET COUNT, AUTOMATED 260 10^3/uL (150-450); RED BLOOD COUNT 4.25 10^6/uL (4.30-6.10); WHITE BLOOD COUNT 15.4 10^3/uL (4.0-10.0)
[2019-07-10] MEDS ORDERED: HYDR1CRE30 TOP (16:15)
[2019-07-10] MEDS ORDERED: FLON1SPR NARES (16:15)
[2019-07-10] MEDS ORDERED: AZITHROMYCIN INJ 500 MG, VIAL MATE ADAPTER 1 EACH in D5W 250 ML IV ONE (16:15)
[2019-07-10] MEDS ORDERED: THERSOL2 OU (16:15)
[2019-07-10] MEDS ORDERED: ALB2.5NEB INH (16:15)
[2019-07-10] MEDS ORDERED: SENN-23 PO (16:15)
[2019-07-10] MEDS ORDERED: VISI1CAP PO (16:15)
[2019-07-10] MEDS ORDERED: PROAAER10 INH (16:15)
[2019-07-10] MEDS ORDERED: FLAX1CAP5 PO (16:15)
[2019-07-10 16:22] LABS: ALBUMIN 2.6 GM/DL (3.2-5.2); ALT/SGPT 38 U/L (12-78); BILIRUBIN,DIRECT 0.2 MG/DL (0.0-0.2); BILIRUBIN,TOTAL 0.7 MG/DL (0.2-1.0); BLOOD UREA NITROGEN 26 MG/DL (7-18); CARBON DIOXIDE LEVEL 26 MEQ/L (21-32); CHLORIDE LEVEL 94 MEQ/L (98-107); CK-MB VALUE MASS < 1.0 NG/ML (<3.6); CPK CREATINE PHOSPHOKINASE 100 U/L (39-308); CREATININE FOR GFR 1.07 MG/DL (0.70-1.30); ETHYL ALCOHOL (ETHANOL) < 0.003 % (0.000-0.010); GLOMERULAR FILTRATION RATE > 60.0 (>35); GLUCOSE, FASTING 146 MG/DL (70-100); POTASSIUM SERUM 4.5 MEQ/L (3.5-5.1); SODIUM LEVEL 128 MEQ/L (136-145); THYROID STIMULATING HORMONE 0.462 uIU/ML (0.358-3.740); TOTAL PROTEIN 6.2 GM/DL (6.4-8.2); TROPONIN I < 0.02 NG/ML (< 0.10)
[2019-07-10] MEDS ORDERED: ACETAMINOPHEN TAB 650MG DOSE (2X325MG) PO PRN (17:00)
[2019-07-10] MEDS ORDERED: SENOKOT S TAB PO PRN (17:15)
--- NOTE | 2019-07-10 17:15 | HPEPDOC ---
[facility] Medical History & Physical Date of Admission Jul 10, 2019 Date of Service: Jul 10, 2019 History and Physical CHIEF COMPLAINT: AMS HISTORY OF PRESENT ILLNESS: Patient is a 89M with PMH HTN, HLD, BPH, Depression was brought into the ER by family for complaints of AMS for the past several days. He reportedly has been coughing for the past few weeks but noticed to be more confused for the past several days. He was admitted in January prior for similar symptoms and did resolve after a few days, thought to be from dementia. Patient wakes up and answer some questions but does have some confusion, only oriented x1 to person. Most history obtained from daughter. She reported that he just completed a course of antibiotics and prednisone for nonspecific respiratory symptoms but do not know what they are. Regarding code status family had discussed and learning towards DNR but have not finalized a decision and want to defer decision on code status at this time. PAST MEDICAL HISTORY: Refer to [facility] PAST SURGICAL HISTORY: R. leg surgery SOCIAL HISTORY: Social alcohol. Denies tobacco or illicit drug use. FAMILY HISTORY: Mother- [place] Sister- brain cancer ALLERGIES: Please see below. REVIEW OF SYSTEMS: 10 point review of system negative except as stated in HPI HOME MEDICATIONS: Please see below. PHYSICAL EXAMINATION: General: No acute distress, Alert, weak Eyes: Normal sclera, EOMI, ALYCIA HENT: Atraumatic, neck supple Cardiovascular: Normal rate, normal rhythm. Pulmonary: Clear to auscultation b/l, no wheezing GI: Soft, nontender, nondistended Skin: Warm and dry Neuro: CN grossly intact. generalized weakness. Psych: oriented x 1 to person LABORATORY DATA: See below. IMAGING: CXR- RLL Infiltrate MICROBIOLOGY: Please see below. ASSESSMENT AND PLAN: 1. RLL Pneumonia CAP - Several weeks of cough and infiltrate noted on CXR. WBC 15.4. - Will treat with Azithromycin/ceftriaxone combination for PNA. - O2 support if needed. 2. HTN - BP controlled. No medications noted in home med rec. 3. AMS - Likely 2/2 PNA in setting of baseline dementia. - c/w treatment for PNA, suspect that mental status will improve in the next few days. - afebrile. No focal deficits. 4. Generalized weakness - PT eval and treatment DVT ppx: Lovenox and SCD. Code status: Full code until decision is made by family for DNR Family practice attending instructional technologist notified Vital Signs Vital Signs Date Time Temp Pulse Resp B/P (MAP) Pulse Ox O2 Delivery O2 Flow Rate FiO2 07/10/19 16:58 79 16 129/64 (85) 94 Room Air 07/10/19 14:27 98.1 Laboratory Data Labs 24H Laboratory Tests 2 07/10/19 15:02: Urine Color YELLOW, Urine Appearance CLEAR, Urine pH 5.0, Urine Specific [place] 1.017, Urine Protein NEGATIVE, Urine Glucose (UA) NEGATIVE, Urine Ketones NEGATIVE, Urine Blood NEGATIVE, Urine Nitrite NEGATIVE, Urine Bilirubin NEGATIVE, Urine Urobilinogen 0.2, Urine Leukocyte Esterase NEGATIVE, Urine WBC (Auto) 0, Urine RBC (Auto) 0, Urine Hyaline Casts (Auto) 0, Urine Bacteria (Auto) NEGATIVE, Urine Squamous Epithelial Cells 0, Urine Mucus (Auto) SMALL, Urine Sperm (Auto) 07/10/19 15:04: Immature Granulocyte % (Auto) 0.9, Neutrophils (%) (Auto) 87.0H, Lymphocytes (%) (Auto) 4.5L, Monocytes (%) (Auto) 6.8H, Eosinophils (%) (Auto) 0.7, Basophils (%) (Auto) 0.1, Neutrophils # (Auto) 13.4H, Lymphocytes # (Auto) 0.7L, Monocytes # (Auto) 1.1H, Eosinophils # (Auto) 0.1, Basophils # (Auto) 0.0, Nucleated Red Blood Cells % (auto) 0.0, Anion Gap 8, Glomerular Filtration Rate > 60.0, Calcium Level 9.0, Total Bilirubin 0.7, Direct Bilirubin 0.2, Aspartate Amino Transf (AST/SGOT) 21, Alanine Aminotransferase (ALT/SGPT) 38, Alkaline Phosphatase 58, Ammonia 12, Total Creatine Kinase 100, Creatine Kinase MB < 1.0, Creatine Kinase MB Relative Index 1.00, Troponin I < 0.02, Total Protein 6.2L, Albumin 2.6L, Albumin/Globulin Ratio 0.72L, Thyroid Stimulating Hormone (TSH) 0. 462, Ethyl Alcohol Level < 0.003 07/10/19 15:51: Bedside Glucose (Misc Panel) 138H CBC/BMP Laboratory Tests 07/10/19 15:04 Microbiology Microbiology 07/10/19 Blood Culture, Received Pending 07/10/19 Blood Culture, Received Pending Home Medications Scheduled Acetaminophen/Diphenhydramine (Acetaminophen Pm Caplet) 1 Each Tablet, 1 TAB PO QHS Citalopram Hydrobromide (Citalopram HBr) 40 Mg Tablet, 40 MG PO DAILY Flaxseed Oil (Flaxseed Oil) 1,000 Mg Capsule, 1 CAP PO DAILY Loratadine (Loratadine) 10 Mg Tablet, 10 MG PO DAILY Ranitidine HCl (Ranitidine HCl) 75 Mg Tablet, 1 TAB PO QHS Travoprost (Travatan Z) 0.004% 2.5ML Drops, 1 DROP OU QHS Vit A/Vit C/Vit E/Zinc/Copper (Vision Formula Softgel) 1 Each Capsule, 1 CAP PO DAILY Scheduled PRN Albuterol Sulfate (Proair Hfa) 8.5 Gm Hfa.aer.ad, 2 PUFF INH Q4H PRN for SHORTNESS OF BREATH Albuterol Sulfate (Albuterol Sulfate) 2.5 Mg/0.5 Ml Vial.neb, 2.5 MG INH Q6H PRN for SHORTNESS OF BREATH Carboxymethylcellulose Sodium (Thera Tears) 1 Each Droperette, 2 DROP OU QID PRN for DRY EYES Fluticasone Propionate (Flonase Allergy Relief) 9.9 Ml Goff.susp, 2 SPRAY NARES DAILY PRN for CONGESTION Hydrocortisone (Hydrocortisone) 28 Gm Cream..g., 1 APLCT TOP BID PRN for RASH APPLY TO CHEEKS Sennosides/Docusate Sodium (Senna-S Tablet) 1 Each Tablet, 1 TAB PO BID PRN for CONSTIPATION Allergies Coded Allergies: No Known Allergies (Unverified , 02/18/19) A-FIB/CHADSVASC A-FIB History Current/History of A-Fib/PAF?: No GUILHERME YAN MD Jul 10, 2019 17:15
--- NOTE | 2019-07-10 19:27 | ECGEPIP ---
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
[2019-07-10 21:48] VITALS: BP 145/60
[2019-07-10] MEDS: LATANOPROST 0.005% OPHTH SOLN 2.5 ML OU SCH (22:38)
[2019-07-11 06:00] VITALS: BP 145/93
[2019-07-11 06:23] LABS: HEMATOCRIT 39.6 % (42.0-52.0); HEMOGLOBIN 13.5 g/dl (13.5-17.5); MEAN CORPUSCULAR HEMOGLOBIN 30.8 pg (27.0-33.0); MEAN CORPUSCULAR HGB CONC 34.1 g/dl (32.0-36.5); MEAN CORPUSCULAR VOLUME 90.2 fl (80.0-96.0); PLATELET COUNT, AUTOMATED 280 10^3/uL (150-450); RED BLOOD COUNT 4.39 10^6/uL (4.30-6.10); WHITE BLOOD COUNT 16.4 10^3/uL (4.0-10.0)
--- NOTE | 2019-07-11 06:39 | REP ---
CT brain without contrast: History: Altered mental status. Comparison CT study February 18, 2019. Findings: Preliminary digital mining speculator radiograph is unremarkable. The bony calvarium is intact. There is heavy vascular calcification in the distal vertebral and distal carotid arteries. The visualized paranasal sinuses are clear. No intraorbital abnormality is appreciated. On soft tissue window settings there is moderate generalized volume loss again noted. Small vessel atherosclerotic changes are seen in the periventricular white matter as before. There is a left basal ganglia old lacunar infarct again seen. There is no evidence of intracranial hemorrhage. No acute infarction is appreciated. No mass or extra-axial fluid collection is seen. Impression: Vascular calcification and generalized atrophy. Old lacunar infarct left basal ganglia. Small vessel changes. No acute intracranial abnormality. Electronically Signed by Israel Elliott MD 07/11/2019 08:33 A
[2019-07-11 06:52] LABS: BLOOD UREA NITROGEN 21 MG/DL (7-18); CALCIUM LEVEL 9.1 MG/DL (8.8-10.2); CARBON DIOXIDE LEVEL 27 MEQ/L (21-32); CHLORIDE LEVEL 94 MEQ/L (98-107); GLOMERULAR FILTRATION RATE > 60.0 (>35); GLUCOSE, FASTING 170 MG/DL (70-100); POTASSIUM SERUM 3.7 MEQ/L (3.5-5.1); SODIUM LEVEL 128 MEQ/L (136-145)
[2019-07-11] MEDS: cefTRIAXone SOD 1 GM in D5W MINI-BAG PLUS 50 ML IV SCH (09:33)
[2019-07-11] MEDS: ENOXAPARIN 30 MG/0.3 ML SYR (J1650) SC SCH (09:34)
[2019-07-11] MEDS: LORATADINE 10 MG TAB PO SCH (09:34)
[2019-07-11] MEDS ORDERED: AZITHROMYCIN INJ 500 MG, VIAL MATE ADAPTER 1 EACH in D5W 250 ML IV SCH (10:00)
[2019-07-11 14:00] VITALS: BP 141/84
--- NOTE | 2019-07-11 16:42 | IPNPDOC ---
Subjective Date Seen The patient was seen on 07/11/19. Subjective Chief Complaint/HPI noncontributory Constitutional: Denies: Chills Eyes: Denies: Pain, Vision change ENT: Denies: Head Aches Skin: Denies: Rash, Lesions Pulmonary: Denies: Dyspnea, Cough Cardiovascular: Denies: Chest Pain, Palpitations Gastrointestinal: Denies: Nausea, Vomiting Objective Physical Examination General Exam: Positive: Alert, No Acute Distress ENT Exam: Positive: Atraumatic Neck Exam: Negative: JVD Chest Exam: Positive: Rales (R base), Diminished Heart Exam: Positive: Rate Normal Abdomen Exam: Positive: Normal bowel sounds Male Exam: Negative: Edema Extremity Exam: Negative: Edema Skin Exam: Positive: Nl turgor and temperature Psych Exam: Negative: Oriented x 3 (A/O x 0) Assessment /Plan Problems (1) Hyponatremia Status: Acute Problem Text: Na 128 ? SIADH 2 chronic citalo 07/11 check blank no diuretic use baseline 02/2019 admission Na 128-130-no blank done (2) Pneumonia Status: Acute Problem Text: D1 ceftri/azithro 07/10 CXR RLL PN 07/11 WBC 16.4 (15.4), AF, SaO2 at baseline ~93% RA 07/10 BCX2 NG 07/10 -UA (3) Dementia Status: Chronic Problem Text: c acute delirium 2 TME 2 PN favor baseline MID 01/2019 B12 1060 06/2019 TSH 0.5 07/10/19 CT head: Vascular calcification and generalized atrophy. Old lacunar infarct left basal ganglia. Small vessel changes. No acute intracranial abnormality. (4) Physical deconditioning Status: Chronic Problem Text: 07/11 + PT, per nursing daughter requesting change to DNR status- currently px WITHOUT capacity, BUT PCP Bridgett Muñoz has documented A/O x 3 recently Plan/VTE VTE Prophylaxis Ordered?: Yes VS, I&O, 24H, Fishbone Vital Signs/I&O Vital Signs Date Time Temp Pulse Resp B/P (MAP) Pulse Ox O2 Delivery O2 Flow Rate FiO2 07/11/19 06:00 98.4 102 19 145/93 (110) 92 Room Air I&O- Last 24 Hours up to 6 AM 07/11/19 06:00 Intake Total 290 ml Output Total 100 ml Balance 190 ml Laboratory Data 24H LABS Laboratory Tests 2 07/11/19 06:05: Nucleated Red Blood Cells % (auto) 0.0, Anion Gap 7L, Glomerular Filtration Rate > 60.0, Calcium Level 9.1 CBC/BMP Laboratory Tests 07/11/19 06:05 Microbiology Microbiology 07/10/19 Blood Culture, Received Pending 07/10/19 Blood Culture - Preliminary, Resulted No growth after 24 hours . All specim... Dino Palacios M.D. Jul 11, 2019 16:42
[2019-07-11 18:00] LABS: ALBUMIN 2.5 GM/DL (3.2-5.2); BLOOD UREA NITROGEN 16 MG/DL (7-18); CALCIUM LEVEL 9.2 MG/DL (8.8-10.2); CARBON DIOXIDE LEVEL 25 MEQ/L (21-32); CHLORIDE LEVEL 95 MEQ/L (98-107); CREATININE FOR GFR 0.82 MG/DL (0.70-1.30); GLOMERULAR FILTRATION RATE > 60.0 (>35); GLUCOSE, FASTING 159 MG/DL (70-100); PHOSPHORUS LEVEL 2.4 MG/DL (2.5-4.9); POTASSIUM SERUM 4.4 MEQ/L (3.5-5.1); SODIUM LEVEL 131 MEQ/L (136-145)
[2019-07-11 18:09] LABS: OSMOLALITY SERUM 272 MOSM/KG (280-301)
[2019-07-11] MEDS: LATANOPROST 0.005% OPHTH SOLN 2.5 ML OU SCH (20:43)
[2019-07-11 22:00] VITALS: BP 152/82
[2019-07-12 05:45] LABS: BASO % 0.1 % (0.0-1.0); EOS # 0.1 10^3/uL (0.0-0.5); EOS % 0.4 % (0.0-3.0); HEMATOCRIT 36.8 % (42.0-52.0); HEMOGLOBIN 12.5 g/dl (13.5-17.5); LYMPH # 0.8 10^3/uL (1.5-5.0); LYMPH % 5.8 % (24.0-44.0); MEAN CORPUSCULAR HEMOGLOBIN 30.5 pg (27.0-33.0); MEAN CORPUSCULAR VOLUME 89.8 fl (80.0-96.0); MONO # 1.6 10^3/uL (0.0-0.8); MONO % 11.4 % (0.0-5.0); NEUTROPHILS # 11.4 10^3/uL (1.5-8.5); NEUTROPHILS % 81.2 % (36.0-66.0); PLATELET COUNT, AUTOMATED 292 10^3/uL (150-450)
[2019-07-12 06:00] VITALS: BP 159/95
[2019-07-12 06:08] LABS: ALBUMIN 2.2 GM/DL (3.2-5.2); ALT/SGPT 33 U/L (12-78); BILIRUBIN,TOTAL 0.8 MG/DL (0.2-1.0); BLOOD UREA NITROGEN 17 MG/DL (7-18); CALCIUM LEVEL 8.8 MG/DL (8.8-10.2); CARBON DIOXIDE LEVEL 28 MEQ/L (21-32); CHLORIDE LEVEL 96 MEQ/L (98-107); CREATININE FOR GFR 0.89 MG/DL (0.70-1.30); GLOMERULAR FILTRATION RATE > 60.0 (>35); GLUCOSE, FASTING 171 MG/DL (70-100); SODIUM LEVEL 130 MEQ/L (136-145); TOTAL PROTEIN 6.2 GM/DL (6.4-8.2)
--- NOTE | 2019-07-12 09:48 | IPNPDOC ---
Subjective Date Seen The patient was seen on 07/12/19. Subjective Chief Complaint/HPI no complaints of dyspnea or cough Constitutional: Denies: Chills ENT: Denies: Head Aches Cardiovascular: Denies: Chest Pain, Palpitations Gastrointestinal: Denies: Nausea, Abdominal Pain Hematologic: Denies: Bruising Psych: Reports: Mood Normal Objective Physical Examination General Exam: Positive: Alert, No Acute Distress ENT Exam: Positive: Atraumatic Neck Exam: Negative: JVD Chest Exam: Positive: Rales (R base), Diminished (throughout) Heart Exam: Positive: Rate Normal Abdomen Exam: Positive: Normal bowel sounds, Soft; Negative: Tenderness Male Exam: Negative: Edema Extremity Exam: Negative: Edema Skin Exam: Positive: Nl turgor and temperature; Negative: Lesion Neuro Exam: Positive: Normal Speech Psych Exam: Negative: Oriented x 3 (A/O x 0) Assessment /Plan Problems (1) Pneumonia Status: Acute Response to Treatment: Stable Problem Text: 07/12: continue ceftriaxone, azithromycin. change azithro to po. D1 ceftri/azithro 07/10 CXR RLL PN 07/11 WBC 16.4 (15.4), AF, SaO2 at baseline ~93% RA 07/10 BCX2 NG 07/10 -UA (2) Hyponatremia Status: Acute Problem Text: 07/12: improving slowly. will check urinary osmolarity, serum osmolarity, urine sodium Na 128 ? SIADH 2 chronic citalo 07/11 check blank no diuretic use baseline 02/2019 admission Na 128-130-no blank done (3) Dementia Status: Chronic Response to Treatment: Stable Problem Text: 07/12: requires help with feeding, chronic. question ability to return home with additional services vs placement. c acute delirium 2 TME 2 PN favor baseline MID 01/2019 B12 1060 06/2019 TSH 0.5 07/10/19 CT head: Vascular calcification and generalized atrophy. Old lacunar infarct left basal ganglia. Small vessel changes. No acute intracranial abnormality. (4) Physical deconditioning Status: Chronic Problem Text: 07/12: had previous "out of hospital DNR" but these documents are no longer in use. today he thinks he would want to have DNR order but seems unsure. 07/11 + PT, per nursing daughter requesting change to DNR status-currently px WITHOUT capacity, BUT PCP Bridgett Muñoz has documented A/O x 3 recently Plan/VTE VTE Prophylaxis Ordered?: Yes VS, I&O, 24H, Fishbone Vital Signs/I&O Vital Signs Date Time Temp Pulse Resp B/P (MAP) Pulse Ox O2 Delivery O2 Flow Rate FiO2 07/12/19 06:00 97.7 93 18 159/95 (116) 99 Room Air I&O- Last 24 Hours up to 6 AM 07/12/19 06:00 Intake Total 720 ml Output Total 350 ml Balance 370 ml Laboratory Data 24H LABS Laboratory Tests 2 07/11/19 17:25: Anion Gap 11, Glomerular Filtration Rate > 60.0, Osmolality 272L, Calcium Level 9.2, Phosphorus Level 2.4L, Albumin 2.5L 07/12/19 05:30: Anion Gap 6L, Glomerular Filtration Rate > 60.0, Calcium Level 8.8, Albumin 2.2L, Immature Granulocyte % (Auto) 1.1, Neutrophils (%) (Auto) 81.2H, Lymphocytes (%) (Auto) 5.8L, Monocytes (%) (Auto) 11.4H, Eosinophils (%) (Auto) 0.4, Basophils (%) (Auto) 0.1, Neutrophils # (Auto) 11.4H, Lymphocytes # (Auto) 0.8L, Monocytes # (Auto) 1.6H, Eosinophils # (Auto) 0.1, Basophils # (Auto) 0.0, Nucleated Red Blood Cells % (auto) 0.0, Total Bilirubin 0.8, Aspartate Amino Transf (AST/SGOT) 20, Alanine Aminotransferase (ALT/SGPT) 33, Alkaline Phosphatase 56, Total Protein 6.2L, Albumin/Globulin Ratio 0.55L 07/12/19 09:14: CBC/BMP Laboratory Tests 07/11/19 17:25 07/12/19 05:30 Microbiology Microbiology 07/10/19 Blood Culture - Preliminary, Resulted No growth after 24 hours . All specim... 07/10/19 Blood Culture - Preliminary, Resulted No growth after 24 hours . All specim... Severo Bush MD Jul 12, 2019 09:48
[2019-07-12] MEDS: LORATADINE 10 MG TAB PO SCH (09:56)
[2019-07-12] MEDS: ENOXAPARIN 30 MG/0.3 ML SYR (J1650) SC SCH (09:56)
[2019-07-12] MEDS: cefTRIAXone SOD 1 GM in D5W MINI-BAG PLUS 50 ML IV SCH (09:56)
[2019-07-12] MEDS: AZITHROMYCIN 250 MG TAB PO SCH (10:31)
[2019-07-12 14:00] VITALS: BP 106/57
[2019-07-12] MEDS: LATANOPROST 0.005% OPHTH SOLN 2.5 ML OU SCH (21:07)
[2019-07-12 22:00] VITALS: BP 109/78
[2019-07-13 05:48] LABS: HEMATOCRIT 36.7 % (42.0-52.0); HEMOGLOBIN 12.5 g/dl (13.5-17.5); MEAN CORPUSCULAR HEMOGLOBIN 30.3 pg (27.0-33.0); MEAN CORPUSCULAR HGB CONC 34.1 g/dl (32.0-36.5); MEAN CORPUSCULAR VOLUME 89.1 fl (80.0-96.0); PLATELET COUNT, AUTOMATED 294 10^3/uL (150-450); RED BLOOD COUNT 4.12 10^6/uL (4.30-6.10); WHITE BLOOD COUNT 14.3 10^3/uL (4.0-10.0)
[2019-07-13 06:00] VITALS: BP 112/80
[2019-07-13 06:08] LABS: BLOOD UREA NITROGEN 14 MG/DL (7-18); CALCIUM LEVEL 8.6 MG/DL (8.8-10.2); CARBON DIOXIDE LEVEL 27 MEQ/L (21-32); CHLORIDE LEVEL 94 MEQ/L (98-107); CREATININE FOR GFR 0.86 MG/DL (0.70-1.30); GLOMERULAR FILTRATION RATE > 60.0 (>35); GLUCOSE, FASTING 199 MG/DL (70-100); POTASSIUM SERUM 3.3 MEQ/L (3.5-5.1); SODIUM LEVEL 129 MEQ/L (136-145)
[2019-07-13] MEDS: ENOXAPARIN 30 MG/0.3 ML SYR (J1650) SC SCH (09:31)
[2019-07-13] MEDS: AZITHROMYCIN 250 MG TAB PO SCH (09:31)
[2019-07-13] MEDS: LORATADINE 10 MG TAB PO SCH (09:31)
[2019-07-13] MEDS: cefTRIAXone SOD 1 GM in D5W MINI-BAG PLUS 50 ML IV SCH (09:32)
[2019-07-13] MEDS: POTASSIUM CHLORIDE 10 MEQ SR TABLET PO SCH ×2 (09:32→20:15)
--- NOTE | 2019-07-13 10:29 | IPNPDOC ---
Subjective Date Seen The patient was seen on 07/13/19. Subjective Chief Complaint/HPI NO complaints Constitutional: Denies: Chills, Fever Pulmonary: Denies: Dyspnea, Cough Cardiovascular: Denies: Chest Pain Gastrointestinal: Denies: Nausea, Vomiting, Abdominal Pain, Diarrhea Objective Physical Examination General Exam: Positive: Alert, No Acute Distress ENT Exam: Positive: Atraumatic Neck Exam: Negative: JVD Chest Exam: Positive: Rales (R base), Diminished (throughout) Heart Exam: Positive: Rate Normal Abdomen Exam: Positive: Normal bowel sounds, Soft; Negative: Tenderness Male Exam: Negative: Edema Extremity Exam: Negative: Edema Skin Exam: Positive: Nl turgor and temperature; Negative: Lesion Neuro Exam: Positive: Normal Speech Psych Exam: Negative: Oriented x 3 (A/O x 0) Assessment /Plan Problems (1) Pneumonia Status: Acute Response to Treatment: Stable Problem Text: 07/13 -RLL pneumonia - clinically slow improvement on Rocephin and Zithromax At risk for aspiration due to advanced dementia - not taking much po Get swallowing eval 07/12: continue ceftriaxone, azithromycin. change azithro to po. D1 ceftri/azithro 07/10 CXR RLL PN 07/11 WBC 16.4 (15.4), AF, SaO2 at baseline ~93% RA 07/10 BCX2 NG 07/10 -UA (2) Hyponatremia Status: Acute Problem Text: 07/13 - Worsening - may at this point be related to hypovolemia - oral intake is poor per documentation Start NS and monitor trend 07/12: improving slowly. will check urinary osmolarity, serum osmolarity, urine sodium Na 128 ? SIADH 2 chronic citalo 07/11 check blank no diuretic use baseline 02/2019 admission Na 128-130-no blank done (3) Dementia Status: Chronic Response to Treatment: Stable Problem Text: 07/12: requires help with feeding, chronic. question ability to return home with additional services vs placement. c acute delirium 2 TME 2 PN favor baseline MID 01/2019 B12 1060 06/2019 TSH 0.5 07/10/19 CT head: Vascular calcification and generalized atrophy. Old lacunar infarct left basal ganglia. Small vessel changes. No acute intracranial abnormality. (4) Physical deconditioning Status: Chronic Problem Text: 07/12: had previous "out of hospital DNR" but these documents are no longer in use. today he thinks he would want to have DNR order but seems unsure. 07/11 + PT, per nursing daughter requesting change to DNR status-currently px WITHOUT capacity, BUT PCP Bridgett Muñoz has documented A/O x 3 recently (5) Metabolic encephalopathy Status: Acute Problem Text: likely secondary to hyponatremia and pneumonia Per daughter had AMS on admission - has underlying dementia at baseline MS seems to have improved but will need to d/w daughter to determine if back to baseline Plan/VTE VTE Prophylaxis Ordered?: Yes Disposition Patient has 14/04 care at home and will be able to return home to that care when medically stable VS, I&O, 24H, Fishbone Vital Signs/I&O Vital Signs Date Time Temp Pulse Resp B/P (MAP) Pulse Ox O2 Delivery O2 Flow Rate FiO2 07/13/19 06:00 98.6 80 18 112/80 (91) 98 07/12/19 22:00 Room Air I&O- Last 24 Hours up to 6 AM 07/13/19 06:00 Intake Total 240 ml Output Total 0 ml Balance 240 ml Laboratory Data 24H LABS Laboratory Tests 2 07/13/19 05:11: Nucleated Red Blood Cells % (auto) 0.0, Anion Gap 8, Glomerular Filtration Rate > 60.0, Calcium Level 8.6L CBC/BMP Laboratory Tests 07/13/19 05:11 Microbiology Microbiology 07/10/19 Blood Culture - Preliminary, Resulted No Growth after 48 hours. All Specime... 07/10/19 Blood Culture - Preliminary, Resulted No Growth after 48 hours. All Specime... IZZY MICHEL PA-C Jul 13, 2019 10:29
[2019-07-13] MEDS ORDERED: SODIUM CHLORIDE 0.9% 1000ML IV ONE (10:30)
[2019-07-13] MEDS: NS 1,000 ML IV SCH ×2 (11:10→23:42)
[2019-07-13 12:23] LABS: THYROID STIMULATING HORMONE 0.376 uIU/ML (0.358-3.740)
[2019-07-13 14:00] VITALS: BP 148/77
[2019-07-13] MEDS: TAMSULOSIN 0.4 MG CAP PO SCH (20:15)
[2019-07-13] MEDS: LATANOPROST 0.005% OPHTH SOLN 2.5 ML OU SCH (20:15)
[2019-07-13 22:00] VITALS: BP 144/78
[2019-07-14 06:00] VITALS: BP 140/82
[2019-07-14 06:34] LABS: HEMATOCRIT 33.4 % (42.0-52.0); HEMOGLOBIN 11.5 g/dl (13.5-17.5); MEAN CORPUSCULAR HEMOGLOBIN 30.6 pg (27.0-33.0); MEAN CORPUSCULAR HGB CONC 34.4 g/dl (32.0-36.5); MEAN CORPUSCULAR VOLUME 88.8 fl (80.0-96.0); PLATELET COUNT, AUTOMATED 294 10^3/uL (150-450); RED BLOOD COUNT 3.76 10^6/uL (4.30-6.10); WHITE BLOOD COUNT 15.7 10^3/uL (4.0-10.0)
[2019-07-14 07:04] LABS: BLOOD UREA NITROGEN 10 MG/DL (7-18); CALCIUM LEVEL 8.6 MG/DL (8.8-10.2); CARBON DIOXIDE LEVEL 25 MEQ/L (21-32); CHLORIDE LEVEL 98 MEQ/L (98-107); GLOMERULAR FILTRATION RATE > 60.0 (>35); GLUCOSE, FASTING 185 MG/DL (70-100); POTASSIUM SERUM 3.6 MEQ/L (3.5-5.1); SODIUM LEVEL 131 MEQ/L (136-145)
[2019-07-14] MEDS: POTASSIUM CHLORIDE 10 MEQ SR TABLET PO SCH ×2 (08:58→21:43)
[2019-07-14] MEDS: cefTRIAXone SOD 1 GM in D5W MINI-BAG PLUS 50 ML IV SCH (08:58)
[2019-07-14] MEDS: AZITHROMYCIN 250 MG TAB PO SCH (08:59)
[2019-07-14] MEDS: LORATADINE 10 MG TAB PO SCH (08:59)
[2019-07-14] MEDS: ENOXAPARIN 30 MG/0.3 ML SYR (J1650) SC SCH (08:59)
[2019-07-14] MEDS: NS 1,000 ML IV SCH (10:17)
[2019-07-14] MEDS ORDERED: DEXTROSE 50% 50 ML SYRINGE IV PRN (10:45)
[2019-07-14] MEDS ORDERED: GLUCOSE 4 GM CHEW TABLET PO PRN (10:45)
[2019-07-14] MEDS ORDERED: GLUCAGON FOR INJ 1 MG VIAL (J1610) SC PRN (10:45)
--- NOTE | 2019-07-14 11:05 | IPNPDOC ---
Subjective Date Seen The patient was seen on 07/14/19. Subjective Chief Complaint/HPI Pneumonia Events since last encounter Patient denies c/o. Constitutional: Denies: Chills, Fever, Night Sweats Pulmonary: Denies: Dyspnea, Cough Cardiovascular: Denies: Chest Pain, Palpitations, Orthopnea, Paroxysmal Noc. Dyspnea, Lt Headedness Gastrointestinal: Denies: Nausea, Vomiting, Abdominal Pain, Diarrhea, Constipation Objective Physical Examination General Exam: Positive: Alert, No Acute Distress ENT Exam: Positive: Atraumatic Neck Exam: Negative: JVD Chest Exam: Positive: Diminished (throughout) Heart Exam: Positive: Rate Normal Abdomen Exam: Positive: Normal bowel sounds, Soft; Negative: Tenderness Male Exam: Negative: Edema Extremity Exam: Negative: Edema Skin Exam: Positive: Nl turgor and temperature; Negative: Lesion Neuro Exam: Positive: Normal Speech Psych Exam: Negative: Oriented x 3 (alert to self only) Assessment /Plan Problems (1) Pneumonia Status: Acute Response to Treatment: Stable Problem Text: 07/14/2019: Swallow eval pending for aspiration. Continue Rocephin and Zithromax. 07/13 -RLL pneumonia - clinically slow improvement on Rocephin and Zithromax At risk for aspiration due to advanced dementia - not taking much po Get swallowing eval 07/12: continue ceftriaxone, azithromycin. change azithro to po. D1 ceftri/azithro 07/10 CXR RLL PN 07/11 WBC 16.4 (15.4), AF, SaO2 at baseline ~93% RA 07/10 BCX2 NG 07/10 -UA (2) Hyponatremia Status: Acute Problem Text: 07/14/2019: Improved at 131 today. Continue IVF. Baseline~134 07/13 - Worsening - may at this point be related to hypovolemia - oral intake is poor per documentation Start NS and monitor trend 07/12: improving slowly. will check urinary osmolarity, serum osmolarity, urine sodium Na 128 ? SIADH 2 chronic citalo 07/11 check blank no diuretic use baseline 02/2019 admission Na 128-130-no blank done (3) Dementia Status: Chronic Response to Treatment: Stable Problem Text: 07/12: requires help with feeding, chronic. question ability to return home with additional services vs placement. c acute delirium 2 TME 2 PN favor baseline MID 01/2019 B12 1060 06/2019 TSH 0.5 07/10/19 CT head: Vascular calcification and generalized atrophy. Old lacunar infarct left basal ganglia. Small vessel changes. No acute intracranial abnormality. (4) Physical deconditioning Status: Chronic Problem Text: 07/15/2019: AIDE is up to date 07/12: had previous "out of hospital DNR" but these documents are no longer in use. today he thinks he would want to have DNR order but seems unsure. 07/11 + PT, per nursing daughter requesting change to DNR status-currently px WITHOUT capacity, BUT PCP Bridgett Muñoz has documented A/O x 3 recently (5) Metabolic encephalopathy Status: Acute Response to Treatment: Improving Problem Text: likely secondary to hyponatremia and pneumonia Per daughter had AMS on admission - has underlying dementia at baseline MS seems to have improved but will need to d/w daughter to determine if back to baseline (6) Diabetes mellitus Status: Chronic Problem Text: Hemoglobin A1c of 6.6 noted in outpatient record. Diet controlled at home. RISS per protocol and FS AC and HS while inpatient. Plan/VTE VTE Prophylaxis Ordered?: Yes VS, I&O, 24H, Fishbone Vital Signs/I&O Vital Signs Date Time Temp Pulse Resp B/P (MAP) Pulse Ox O2 Delivery O2 Flow Rate FiO2 07/14/19 06:00 97.9 91 17 140/82 (101) 96 07/12/19 22:00 Room Air I&O- Last 24 Hours up to 6 AM 07/14/19 05:59 Intake Total 1404 ml Output Total 1150 ml Balance 254 ml Laboratory Data 24H LABS Laboratory Tests 2 07/13/19 18:29: Urine Color KILEY, Urine Appearance CLEAR, Urine pH 6.0, Urine Specific [place] 1.020, Urine Protein 1+H, Urine Glucose (UA) 1+H, Urine Ketones TRACEH, Urine Blood 1+H, Urine Nitrite NEGATIVE, Urine Bilirubin NEGATIVE, Urine Urobilinogen 0.2, Urine Leukocyte Esterase NEGATIVE, Urine WBC (Auto) 1, Urine RBC (Auto) 34H, Urine Hyaline Casts (Auto) 0, Urine Bacteria (Auto) NEGATIVE, Urine Squamous Epithelial Cells 0, Urine Mucus (Auto) SMALL, Urine Sperm (Auto) 07/14/19 05:27: Nucleated Red Blood Cells % (auto) 0.0, Anion Gap 8, Glomerular Filtration Rate > 60.0, Calcium Level 8.6L CBC/BMP Laboratory Tests 07/14/19 05:27 Microbiology Microbiology 07/10/19 Blood Culture - Preliminary, Resulted No Growth after 72 hours. All specime... 07/10/19 Blood Culture - Preliminary, Resulted No Growth after 72 hours. All specime... Attending Note Attending Note patient is improving. will try to change to po abx regimen, d/c IV fluids, D/C lombardo. Had swollowing cine esophagram today, results pending. Shweta Kerns Jul 14, 2019 11:05 Severo Bush MD Jul 14, 2019 14:08
[2019-07-14] MEDS ORDERED: E-Z-PAQUE 96% w/w SUSP 176GM BTL As Ordered ONE (12:12)
[2019-07-14] MEDS ORDERED: VARIBAR PUDDING 40% w/v 230ML TUBE As Ordered ONE (12:12)
[2019-07-14] MEDS ORDERED: VARIBAR NECTAR 40% w/v 240ML SUSP BTL As Ordered ONE (12:12)
[2019-07-14] MEDS ORDERED: BARIUM SULFATE 700 MG TABLET (E-Z-DISK) As Ordered ONE (12:13)
[2019-07-14] MEDS: HumaLOG INSULIN (NovoLOG) PER UNIT SC SCH ×2 (13:28→17:30)
[2019-07-14 14:00] VITALS: BP 122/56
[2019-07-14] MEDS ORDERED: HumaLOG INSULIN (NovoLOG) PER UNIT SC SCH (21:00)
[2019-07-14] MEDS: TAMSULOSIN 0.4 MG CAP PO SCH (21:43)
[2019-07-14] MEDS: LATANOPROST 0.005% OPHTH SOLN 2.5 ML OU SCH (21:43)
[2019-07-14] MEDS: AUGMENTIN 500 MG TAB PO SCH (21:43)
[2019-07-14 22:00] VITALS: BP 121/59
[2019-07-15 06:00] VITALS: BP 125/61
[2019-07-15 06:51] LABS: HEMATOCRIT 34.4 % (42.0-52.0); HEMOGLOBIN 11.6 g/dl (13.5-17.5); MEAN CORPUSCULAR HGB CONC 33.7 g/dl (32.0-36.5); MEAN CORPUSCULAR VOLUME 88.9 fl (80.0-96.0); PLATELET COUNT, AUTOMATED 298 10^3/uL (150-450); RED BLOOD COUNT 3.87 10^6/uL (4.30-6.10); WHITE BLOOD COUNT 14.7 10^3/uL (4.0-10.0)
[2019-07-15 07:07] LABS: BLOOD UREA NITROGEN 8 MG/DL (7-18); CALCIUM LEVEL 8.8 MG/DL (8.8-10.2); CARBON DIOXIDE LEVEL 24 MEQ/L (21-32); CHLORIDE LEVEL 98 MEQ/L (98-107); CREATININE FOR GFR 0.74 MG/DL (0.70-1.30); GLOMERULAR FILTRATION RATE > 60.0 (>35); GLUCOSE, FASTING 174 MG/DL (70-100); POTASSIUM SERUM 4.4 MEQ/L (3.5-5.1); SODIUM LEVEL 130 MEQ/L (136-145)
[2019-07-15] MEDS: AUGMENTIN 500 MG TAB PO SCH (09:13)
[2019-07-15] MEDS: ENOXAPARIN 30 MG/0.3 ML SYR (J1650) SC SCH (09:13)
[2019-07-15] MEDS: AZITHROMYCIN 250 MG TAB PO SCH (09:14)
[2019-07-15] MEDS: LORATADINE 10 MG TAB PO SCH (09:14)
[2019-07-15] MEDS: HumaLOG INSULIN (NovoLOG) PER UNIT SC SCH ×2 (09:14→14:13)
[2019-07-15] MEDS: POTASSIUM CHLORIDE 10 MEQ SR TABLET PO SCH (09:14)
[2019-07-15] MEDS ORDERED: PROS5TAB PO (12:25)
[2019-07-15] MEDS ORDERED: FLOM0.4C39 PO (12:25)
[2019-07-15] MEDS ORDERED: AMOX500T2 PO (12:25)
--- NOTE | 2019-07-15 13:14 | DSES ---
DATE OF ADMISSION: 07/10/2019 DATE OF DISCHARGE: 07/15/19 BRIEF HISTORY AND PHYSICAL: The patient is an 89-year-old patient of Mindy Muñoz who presented to the emergency room with altered mental status, coughing for the past few weeks, with more confusion. Per his daughter, he had recently completed a course of antibiotics and prednisone for nonspecific respiratory symptoms. PAST MEDICAL HISTORY: Is significant for hypertension, hyperlipidemia, benign prostatic hypertrophy (BPH), depression. PERTINENT LABORATORIES ON ADMISSION: Sodium 128, potassium 4.5, BUN 26, creatinine 1.0, glucose 146, albumin 2.6. White count 15.4, hemoglobin 13.2, platelets 260,000. CT of the head showed vascular calcifications, old lacunar infarct in left basal ganglia, small vessel changes, no acute intracranial abnormalities. Chest x-ray showed right lower lobe infiltrate consistent with pneumonia, as well as cardiomegaly and old healed rib fractures in the left HOSPITAL COURSE: The patient was admitted for right lower lobe pneumonia. Treated with Rocephin and Zithromax. Clinically improved. Dose has been switched to Augmentin for some concern of possible aspiration. 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 He is able to swallow pureed solids and thin liquids with assistance from staff and caregivers and verbal cues. Should keep him upright with aspiration precautions as tolerated for by mouth intake. Hyponatremia. Possibly related to some hypovolemia from poor by mouth intake while sick and also at the early part of his hospitalization, he was given some intravenous (IV) fluids. Also, his citalopram was held, which can worsen his hyponatremia. His sodium has improved. It is hanging out around 130, and that seems to be about baseline for him, and his mental status is back to baseline, as well. Metabolic encephalopathy related to his above illness. Possibly some contribution from the hyponatremia, as well. He has some mild underlying dementia at baseline, and the family feels that his mental status is back to baseline at the time of discharge. Dementia. He requires help with feeding. His caregivers at the bedside at the time of discharge. They feel comfortable taking him home. He is ambulating with physical therapy at baseline, and they feel that they have everything they need in the home to manage him there. Urinary retention. He developed some urinary retention the night prior to discharge. A Chapin catheter was placed. He was started on Flomax. He will be discharged home with the catheter. The caregivers are comfortable with this. Proscar has also been initiated, and he will need followup with urology arranged as an outpatient to followup on the catheter and possibly do a trial void after he has been on Flomax and Proscar for an adequate period of time. DISPOSITION: He is stable for discharge with home care and his current 14/04 caregivers. Diet: Pureed, regular liquids with upright position and aspiration precautions. Activity as tolerated with walker. MEDICATIONS: - Augmentin 500 mg twice a day, 6 more days to complete a 10-day course - Proscar 5 mg daily - tamsulosin 0.4 mg at bedtime - albuterol two puffs every 4 hours as needed for shortness of breath - flaxseed oil 1000 mg daily - Flonase two sprays per nostril as needed - hydrocortisone cream twice a day as needed for rash - loratadine 10 mg daily - senna S one tablet twice a day as needed for constipation - Travatan Z one drop both eyes at bedtime, a vision formula soft gel one capsule daily - citalopram and ranitidine and acetaminophen/diphenhydramine were all discontinued DISCHARGE DIAGNOSES: 1. Right lower lobe pneumonia. 2. Hyponatremia. 3. Metabolic encephalopathy. 4. Urinary retention with Chapin placed. 5. Dementia. 6. Physical deconditioning. 7. Diabetes mellitus type 2. MTDD
--- NOTE | 2019-07-17 17:29 | REP ---
Examination Requested: Cookie Swallow Reason For Exam: Evaluate for silent aspiration The procedure was performed by ELY Mack, under the direct supervision of Dr. Napoles. The procedure was performed with Kita Gates from speech pathology present. 5 ml aliquots of thin, pudding, and soft food consistency barium was administered. No penetration or aspiration was visualized throughout the course of the exam. The detailed report of this examination will be provided by speech pathology. 1.2 minutes of fluoroscopy time was utilized for this procedure. Reviewed by ELY Green 07/14/2019 03:22 P Electronically Signed by Alberto Napoles MD 07/17/2019 05:20 P
== END 2019-07-15 16:23 | disposition home health service (06) | DRG 193 ==
LOC: M ED 14:26 → M ED INP 16:46 → M MSPAV 21:35
PROVIDERS: ADMIT Student in an Organized Health Care Education/Training Program; ATTEND Family Medicine
DX: J18.9 Pneumonia, unspecified organism (principal); G93.41 Metabolic encephalopathy; E87.1 Hypo-osmolality and hyponatremia; N39.0 Urinary tract infection, site not specified; F03.90 Unspecified dementia, unspecified severity, without behavioral disturbance, psychotic disturbance, mood disturbance, and anxiety; I10 Essential (primary) hypertension; E78.5 Hyperlipidemia, unspecified; N40.0 Benign prostatic hyperplasia without lower urinary tract symptoms; F32.9 Major depressive disorder, single episode, unspecified; R33.9 Retention of urine, unspecified; Z79.899 Other long term (current) drug therapy; E11.9 Type 2 diabetes mellitus without complications

== ENCOUNTER → 2019-07-28 | Outpatient (REF) | payer MEDICARE, OTHER ==
[~2019-07-28] MED LIST changes: +ALB2.5NEB INH; +AMOX500T2 PO; +DOXY100T; +FLAX1CAP5 PO; +FLOM0.4C39 PO; +FLON1SPR NARES; +HYDR1CRE30 TOP; +PROAAER10 INH; +PROS5TAB PO; +SENN-23 PO; +THERSOL2 OU; +VISI1CAP PO
[2019-07-28 17:17] LABS: BLOOD UREA NITROGEN 12 MG/DL (7-18); CARBON DIOXIDE LEVEL 25 MEQ/L (21-32); CHLORIDE LEVEL 94 MEQ/L (98-107); CREATININE FOR GFR 1.02 MG/DL (0.70-1.30); GLOMERULAR FILTRATION RATE > 60.0 (>35); GLUCOSE, FASTING 142 MG/DL (70-100); POTASSIUM SERUM 4.8 MEQ/L (3.5-5.1); SODIUM LEVEL 128 MEQ/L (136-145)
== END ==
LOC: M SFHCCLAY 10:11
PROVIDERS: ATTEND Family Medicine
DX: E11.8 Type 2 diabetes mellitus with unspecified complications (principal); Z23 Encounter for immunization
CPT/HCPCS: 80048; 90682; 99495; G0008

== ENCOUNTER → 2019-09-30 | Outpatient (CLI) | payer MEDICARE, OTHER ==
--- NOTE | 2019-09-30 18:09 | REP ---
Right hand series: Four views. History: Pain in the right hand. Findings: Four views of the right hand demonstrate normal overall mineralization. There is advanced osteoarthritis. Erosive osteoarthritic changes are seen affecting the DIP joints of all of the fingers and to some degree of the IP joint of the thumb. There is advanced osteoarthritis at the first carpometacarpal and first metacarpal phalangeal joints. Mild osteoarthritic changes are seen at the other MCP and the PIP joints. Vascular calcification is noted. Impression: Erosive osteoarthritic changes seen. Electronically Signed by Israel Elliott MD 09/30/2019 06:35 P
--- NOTE | 2019-09-30 18:12 | REP ---
Chest x-ray: Three views. History: Essential hypertension. Findings: AP sitting and wheelchair lateral views are compared with prior study from July 10, 2019. There are multiple old healed rib fractures on the left and right posteriorly. Heart is not enlarged. The aorta is calcific. The mediastinum is not otherwise widened. Pleural angles appear sharp. No infiltrate is seen. Impression: Normal heart size. Old healed rib fractures bilaterally. Otherwise no acute disease. Electronically Signed by Israel Elliott MD 09/30/2019 06:36 P
== END ==
LOC: M CLY 14:48
PROVIDERS: ATTEND Nurse Practitioner Family
DX: M19.041 Primary osteoarthritis, right hand (principal); M79.641 Pain in right hand; I10 Essential (primary) hypertension
CPT/HCPCS: 71046; 73130; G0463

== ENCOUNTER → 2019-12-18 | Outpatient (REF) | payer MEDICARE, OTHER ==
[2019-12-18 20:21] LABS: BASO # 0.1 10^3/uL (0.0-0.2); BASO % 0.6 % (0.0-1.0); EOS # 0.8 10^3/uL (0.0-0.5); EOS % 10.2 % (0.0-3.0); HEMATOCRIT 39.6 % (42.0-52.0); HEMOGLOBIN 12.8 g/dl (13.5-17.5); LYMPH # 1.7 10^3/uL (1.5-5.0); LYMPH % 21.4 % (24.0-44.0); MEAN CORPUSCULAR HEMOGLOBIN 28.8 pg (27.0-33.0); MEAN CORPUSCULAR HGB CONC 32.3 g/dl (32.0-36.5); MONO # 0.7 10^3/uL (0.0-0.8); MONO % 8.9 % (0.0-5.0); NEUTROPHILS # 4.6 10^3/uL (1.5-8.5); NEUTROPHILS % 58.4 % (36.0-66.0); PLATELET COUNT, AUTOMATED 318 10^3/uL (150-450); RED BLOOD COUNT 4.45 10^6/uL (4.30-6.10)
[2019-12-18 20:24] LABS: APPEARANCE, URINE CLEAR (CLEAR); BACTERIA, URINE AUTO 2+ (NEGATIVE); BILIRUBIN, URINE AUTO NEGATIVE (NEGATIVE); BLOOD, URINE BLOOD NEGATIVE (NEGATIVE); COLOR, URINE YELLOW (YELLOW); GLUCOSE, URINE (UA) AUTO NEGATIVE (NEGATIVE); KETONE, URINE AUTO NEGATIVE (NEGATIVE); LEUKOCYTE ESTERASE, URINE AUTO 2+ (NEGATIVE); MUCUS, URINE SMALL (NEGATIVE); NITRITE, URINE AUTO POSITIVE (NEGATIVE); PROTEIN, URINE AUTO NEGATIVE (NEGATIVE); RBC, URINE AUTO 2 /HPF (0-3); SPECIFIC GRAVITY URINE AUTO 1.008 (1.002-1.035); SQUAMOUS EPITHELIAL CELL UR AU 0 /HPF (0-6); UROBILINOGEN, URINE AUTO 0.2 mg/dL (0.0-2.0); WBC, URINE AUTO 20 /HPF (0-3)
[2019-12-18 20:32] LABS: BLOOD UREA NITROGEN 23 MG/DL (7-18); CALCIUM LEVEL 9.5 MG/DL (8.8-10.2); CARBON DIOXIDE LEVEL 27 MEQ/L (21-32); CHLORIDE LEVEL 102 MEQ/L (98-107); CREATININE FOR GFR 1.19 MG/DL (0.70-1.30); GLOMERULAR FILTRATION RATE > 60.0 (>35); GLUCOSE, FASTING 120 MG/DL (70-100); POTASSIUM SERUM 5.3 MEQ/L (3.5-5.1); SODIUM LEVEL 135 MEQ/L (136-145)
== END ==
LOC: M SFHCLERA 18:40
PROVIDERS: ATTEND Physician Assistant Medical
DX: T83.511A Infection and inflammatory reaction due to indwelling urethral catheter, initial encounter (principal)
CPT/HCPCS: 80048; 81001; 85025; 87040; 87086; 96372; G0463; J0696